=== PATIENT | female | born 1950 | race Caucasian/White ===

== ENCOUNTER 2018-01-05 13:13 | Emergency (ER) | payer OTHER, SELFPAY ==
[2018-01-05 13:23] VITALS: BP 184/100; PULSE 60; RESP 24; TEMP 36.9; O2SAT 97
[2018-01-05 14:27] LABS: Add Manual Diff / Slide Review NO; Basophils Percent Auto 0.4 % (0-2); Hematocrit 44.1 % (36-46); Hemoglobin 15.4 g/dL (12.0-16.0); Lymphocytes Percent Auto 9.2 % (25-40); Mean Corpuscular HGB Conc 34.9 % (30-36); Mean Corpuscular Hemoglobin 30.7 PG (26-34); Monocytes Percent Auto 4.7 % (3-14); Neutrophils Absolute Auto 9400 /uL (3000-5900); Neutrophils Percent Auto 85.7 % (50-75); Platelet Count 289 X10^3/uL (150-400); Red Blood Cell Count 5.01 X10^6/uL (4.0-5.2); Red Cell Distribution Width 13.3 % (11.6-14.8); White Blood Cell Count 10.9 X10^3/uL (4.5-11.0)
[2018-01-05 14:35] VITALS: BP 164/106; PULSE 72; RESP 17; O2SAT 99
[2018-01-05 14:37] LABS: Alanine Aminotransferase 17 IU/L (9-52); Albumin 4.7 g/dL (3.5-5.0); Albumin Globulin Ratio 1.2 (1.0-2.8); Alkaline Phosphatase 126 U/L (38-126); Aspartate Aminotransferase 28 IU/L (14-36); Bilirubin Total 1.3 mg/dL (0.2-1.3); Blood Urea Nitrogen 12 mg/dL (7-17); Calcium 9.8 mg/dL (8.4-10.2); Carbon Dioxide 23 mmol/L (22-32); Chloride 100 mmol/L (98-107); Estimated Glomerular Filt Rate 44.7 mL/min (>60); Globulin 3.9 g/dL (1.7-4.1); Glucose 121 mg/dL (80-110); HEMOLYSIS < 15 (0-50); Lipase 329 U/L (23-300); Potassium 3.8 mmol/L (3.4-5.1); Sodium 137 mmol/L (137-145); Total Protein 8.6 g/dL (6.3-8.2)
--- NOTE | 2018-01-05 14:45 | ED.ABDPAIN ---
HPI - Abdominal Pain General Chief Complaint: Abdominal Pain Stated Complaint: Abdominal pain Time Seen by Provider: 01/05/18 14:45 Source: patient Mode of arrival: EMS Limitations: no limitations History of Present Illness HPI narrative: The patient arrives by air from the [facility]. She developed lower abdominal pain yesterday. She vomited once yesterday. She now has lower abdominal pain radiating to the xiphoid process. She has not vomited today. She has decreased urine output, she has dysuria. Her last bowel movement was yesterday. She denies fever or chills. She has previously undergone ANNA-BSO, she reports changes to her ovaries, but nonspecifically reporting cancer. The hysterectomy was in 2001 at [facility]. She underwent a sigmoid colectomy with primary anastomosis in 2009 due to a colonic stricture that intraoperatively was deemed to be due to a combination of adhesions and diverticulosis. She required urgent treatment of a incarcerated hernia in 2012. At that time she was also found to have urinary retention, renal failure and ascites. The renal failure resolved once the urinary retention was resolved. She was again admitted [facility] in [place] in 2016 with urinary retention and renal failure that resolved with decompression. Ascites was again noted the ascites again resolved after the urinary retention was managed. A fluid sample was obtained on either of these hospitalizations. No abdominal pelvic pathology was noted on the surgery in 2012. She has a history of diverticulitis. She presents now with pain, with dysuria. She has vomited once. She had a normal bowel movement yesterday. She denies fever, chills or back pain. She has no chest pain or dyspnea. Related Data Home Medications Medication Instructions Recorded Confirmed Chromium 1 tab PO DAILY 01/05/18 01/05/18 Vitamin B-12 1 tab PO DAILY 01/05/18 01/05/18 acetaminophen [Tylenol] 1 tab PO PRN PRN 01/05/18 01/05/18 ascorbic acid (vitamin C) [Vitamin 500 mg PO DAILY 01/05/18 01/05/18 C] aspirin 81 mg PO DAILY 01/05/18 01/05/18 [id number] 1 tab PO BID 01/05/18 01/05/18 cyanocobalamin (vitamin B-12) 1 ml IM QMONTH 01/05/18 01/05/18 [Vitamin B-12] folic acid 1 mg PO DAILY 01/05/18 01/05/18 potassium gluconate 1 tab PO DAILY 01/05/18 01/05/18 Previous Rx's Medication Instructions Recorded tramadol 50 mg PO Q6H PRN #10 tab 01/05/18 tramadol 50 mg PO Q6H PRN #10 tab 01/05/18 Allergies Allergy/AdvReac Type Severity Reaction Status Date / Time cholecalciferol (vitamin D3) AdvReac Unknown Verified 01/05/18 17:16 [From Vitamin D3] iodine AdvReac Unknown Verified 01/05/18 17:16 PAIN MEDICATIONS Allergy Unknown Uncoded 01/05/18 17:16 Review of Systems Review of Systems All systems reviewed & are unremarkable except as noted in HPI and below Constitutional Denies chills, Denies fever(s), Denies lethargy and Denies weakness ENT Ears, Nose, Mouth, and Throat: Denies change in voice, Denies vertigo, Denies dizziness, Denies neck pain, Denies sore throat and Denies throat swelling Cardiovascular Denies chest pain, Denies irregular heart rhythm, Denies lightheadedness, Denies palpitations, Denies dyspnea, Denies dyspnea on exertion and Denies orthopnea Respiratory Denies cough, Denies dyspnea, Denies dyspnea on exertion and Denies wheezing Gastrointestinal Gastrointestinal: Reports as per HPI, Reports abdominal pain, Denies constipation, Denies dyspepsia, Denies heartburn, Denies diarrhea, Denies loose stools, Reports vomiting and Denies hematemesis Genitourinary Reports dysuria and Denies urinary urgency Musculoskeletal Denies back pain and Denies neck pain Integumentary/Breasts Denies erythema, Denies rash and Denies wounds Neurologic Denies confusion, Denies vertigo, Denies dizziness and Denies weakness Psychiatric Denies confusion Endocrine Denies palpitations Hematologic/Lymphatic Denies easy bruising Allergic/Immunologic Denies throat swelling and Denies wheezing PFSH Medical History Acute renal failure (Acute) Breast cancer, left (Acute) Diverticulitis (Acute) Hyperparathyroidism (Acute) Inguinal hernia, incarcerated (Acute) Renal insufficiency (Acute) Urinary retention (Acute) Surgical History History of appendectomy (Acute) History of left mastoidectomy (Acute) History of partial colectomy (Acute) Social History Smoking Status: Never smoker substance use type: does not use additional social history: She lives locally on [address] [address] [facility]. Exam Initial Vital Signs Initial Vital Signs: Vital Signs Temperature 98.4 F 01/05/18 13:23 Pulse Rate 60 01/05/18 13:23 Respiratory Rate 24 01/05/18 13:23 Blood Pressure 184/100 H 01/05/18 13:23 Pulse Oximetry 97 01/05/18 13:23 Const General: cooperative, healthy appearing and well developed Nutritional Appearance: well nourished Orientation: alert, awake, oriented x3 and not confused [facility] Head: normocephalic and atraumatic Mouth: oral mucosae normal and moist mucous membranes Throat: posterior oropharynx normal Eyes General: appearance normal, both eyes and all related structures Eyelids: eyelids normal Conjunctivae: conjunctivae normal Sclera: sclerae normal Pupils: PERRL EOM: EOM intact bilaterally Neck Neck: normal visual inspection, trachea midline, No lymphadenopathy and No JVD Chest Chest: normal inspection of the chest Resp Effort & Inspection: normal respiratory effort and able to speak in complete sentences Auscultation: clear to auscultation bilaterally, no rales, no rhonchi and no wheezes Cardio Rate: regular rate Rhythm: regular rhythm Heart Sounds: S1 normal, S2 normal, no click, no gallops, no murmurs and no rubs Pulses: normal peripheral pulses GI Inspection: no edema and no obesity Palpation: soft, guarding (LLQ) and tender (LLQ) Auscultation: normal bowel sounds Back/Spine/Pelvis Back: No CVA tenderness Skin General: no rashes or lesions noted Neuro General: alert, oriented x3 and no focal motor deficits Extrem General: full ROM, no pedal edema and no calf tenderness Course Course Narrative: I discussed the CT findings with Dr. Escobedo, surgery. Being that this is a noncontrast study, he said there was not a lot to be inferred from the concern for colitis. It would take a contrast study to really sort that out. She has no fever, she does not have symptoms and clinical findings indicating infection. There was concern about the recurrent ascites, and the unknown history of the etiology for the hysterectomy. His 1 suggestion was to obtain a sample of the ascites fluid. There is little ascites. Ultrasound guided aspiration versus culdocentesis are the best options. I discussed the situation with OB, Dr. Guallpa. She felt that culdocentesis was not a good approach, given the lady's multiple surgeries. She did recommend a CA 125 lab test. She agreed with ultrasound-guided paracentesis. However she pointed out that if this was a malignant ovarian/gynecological cancer, the lady would not have intermittent ascites, she would be showing signs of progressive illness. I will be referring the patient back to her doctor recommending the pathology from the hysterectomy in 2001 be reviewed, further studies could be based upon those results. Orders Ordered: ED Orders 01/05/18 14:22 Cancer Antigen 125 Stat Complete Blood Count AUTO DIFF Stat Comprehensive Metabolic Panel Stat Lipase Stat 01/05/18 14:57 CT abdomen pelvis wo con Stat 01/05/18 16:40 Urinalysis and Microscopic Stat Discontinued Medications Diazepam (Valium) 2.5 mg IV NOW ONE Stop: 01/05/18 14:58 Last Admin: 01/05/18 15:10 Dose: 2.5 mg Hydromorphone HCl (Dilaudid) 0.25 mg IV NOW ONE Stop: 01/05/18 17:29 Last Admin: 01/05/18 17:34 Dose: 0.25 mg Sodium Chloride (Normal Saline 0.9%) 1,000 mls @ 1,000 mls/hr IV BOLUS ONE Stop: 01/05/18 15:53 Last Infusion: 01/05/18 17:16 Dose: 0 mls/hr Admin: 01/05/18 15:10 Dose: 1,000 mls/hr Vital Signs - 8 hr 01/05/18 13:23 01/05/18 14:35 01/05/18 16:00 Temperature 98.4 F Pulse Rate 60 72 67 Respiratory Rate 24 17 20 Blood Pressure 184/100 H Blood Pressure [Right Arm] 164/106 H 187/108 H Pulse Oximetry 97 99 99 01/05/18 17:30 01/05/18 18:30 Temperature Pulse Rate 64 70 Respiratory Rate 16 12 Blood Pressure Blood Pressure [Right Arm] 140/92 H 153/90 H Pulse Oximetry 98 98 MDM - Abdominal Pain Lab Data Result diagrams: 01/05/18 14:22 01/05/18 14:22 Lab Results 01/05/18 01/05/18 01/05/18 Range/Units 14:22 14:22 16:40 WBC 10.9 (4.5-11.0) X10^3/uL RBC 5.01 (4.0-5.2) X10^6/uL Hgb 15.4 (12.0-16.0) g/dL Hct 44.1 (36-46) % MCV 88.0 (80-100) fL MCH 30.7 (26-34) PG MCHC 34.9 (30-36) % RDW 13.3 (11.6-14.8) % Plt Count 289 (150-400) X10^3/uL Neut % (Auto) 85.7 H (50-75) % Lymph % (Auto) 9.2 L (25-40) % Cross % (Auto) 4.7 (3-14) % Eos % (Auto) 0.0 L (2-4) % Baso % (Auto) 0.4 (0-2) % Neut # (Auto) 9400 H (7669-8846) /uL Sodium 137 (137-145) mmol/L Potassium 3.8 (3.4-5.1) mmol/L Chloride 100 (98-107) mmol/L Carbon Dioxide 23 (22-32) mmol/L BUN 12 (7-17) mg/dL Creatinine 1.20 H (0.52-1.04) mg/dL Estimated GFR 44.7 L (>60) mL/min BUN/Creatinine Ratio 10.0 (6-22) Glucose 121 H (80-110) mg/dL Calcium 9.8 (8.4-10.2) mg/dL Total Bilirubin 1.3 (0.2-1.3) mg/dL AST 28 (14-36) IU/L ALT 17 (9-52) IU/L Alkaline Phosphatase 126 (38-126) U/L Total Protein 8.6 H (6.3-8.2) g/dL Albumin 4.7 (3.5-5.0) g/dL Globulin 3.9 (1.7-4.1) g/dL Albumin/Globulin Ratio 1.2 (1.0-2.8) Lipase 329 H (23-300) U/L CA 125 Antigen 11 (0-35) U/mL Urine Color Yellow Urine Appearance Clear Urine pH 8.0 (4.5-8.0) Ur Specific Haines 1.010 (1.000-1.035) Urine Protein Negative (Negative) Urine Glucose (UA) Negative (Normal) g/dL Urine Ketones Trace H (NEGATIVE) Urine Occult Blood Trace-intact (Negative) Urine Nitrate Negative (Negative) Urine Bilirubin Negative (NEGATIVE) Urine Urobilinogen 0.2 (0.2) E.U./dL Ur Leukocyte Esterase Negative (NEGATIVE) Urine RBC 0-1/hpf (0-5/HPF) Urine WBC None seen (0-5/HPF) Urine Bacteria None seen (None) Ur Culture Indicated? Cult not indicated Micro UA Comment Not Reportable Imaging Data CT scan - abdomen: Radiologist's impression: INDICATIONS: Vomiting. LLQ pain. Renal insufficency. TECHNIQUE: Noncontrast 5 mm thick sections acquired from the diaphragms to the symphysis. 5 mm coronal and sagittal reformats were then performed. For radiation dose reduction, the following was used: automated exposure control, adjustment of mA and/or kV according to patient size. COMPARISON: [facility], CT, ABDOMEN/PELVIS WITH CONTRAST, 04/09/2010, 12:11. [facility], [place], RETROPERITONEAL SONOGRAM, 10/15/2012, 9:22. [facility], CT, ABDOMEN/PELVIS WITHOUT CONTRAS, 10/05/2012, 10:32. FINDINGS: Image quality: Excellent. ABDOMEN: Lung bases: Lung bases are clear. Heart size is normal. A small hiatal hernia is incidentally noted. Solid organs: Liver is normal in size. Gallbladder wall is not thickened. Pancreas is normal in contours. Spleen is normal in size. No adrenal nodules. Kidneys are normal in size, without hydronephrosis or nephrolithiasis. Peritoneum and bowel: There is mild to moderate wall thickening seen involving the transverse colon and the splenic flexure. No other definite areas of bowel thickening are seen. A mild to moderate ascites is seen. No free air. Colonic diverticulosis is seen, with scattered diverticuli throughout the colon. An apparent anastomotic staple and can be seen within the sigmoid colon. There is a moderate amount of stool seen within the colon. Nodes and vessels: No retroperitoneal or mesenteric adenopathy by size criteria. Aorta and inferior vena cava are normal in caliber. Miscellaneous: No ventral hernias. The previously described lower abdominal incisional hernia is no longer seen. PELVIS: Genitourinary: Bladder wall thickness is normal. Miscellaneous: No inguinal hernias or adenopathy. Bones: No suspicious bony lesions. No vertebral body compression fractures. Degenerative changes are seen throughout, which are most prominent involving the lower lumbar spine. IMPRESSION: Colonic wall thickening is seen. Please correlate with infectious inflammatory causes of colitis. Ischemic colitis is possible, yet considered to be less likely. Mild to moderate ascites is seen. Diverticula formation can be seen throughout colon. There is an apparent anastomotic staple line seen involving the sigmoid colon. Please correlate with known patient history. Incidental note is made of: Small hiatal hernia Dictated by: Didier Cruz M.D. on 01/05/2018 at 15:40 Approved by: Didier Cruz M.D. on 01/05/2018 at 15:46 ECG Data Attestation: I personally reviewed and interpreted this ECG as follows: MDM Narrative Medical decision making narrative: Once a East was placed the patient eventually released 1200 mL of urine. Her abdominal symptoms have improved significantly. Review my discussion about the ascites above. She will be discharged with a East in place, the urinary tension seems to be the primary source of her pain. She is going to be referred back to her doctor for further urologic evaluation, and hopefully to review the pathology from her hysterectomy. Discharge Plan Departure Patient Disposition: Home Clinical Impression: Acute urinary retention, Ascites Discharge Date/Time: 01/05/18 19:23 Interventions: ED Discharge Assessment Last Done: 01/05/18 19:22 Instructions: DI for Urinary Retention in Women Activity Restrictions/Additional Instructions: Tramadol 1/2-1 tablet every 6-8 hours as needed for pain. Follow up with her doctor. I would recommend a review of the hysterectomy pathology from years past, the reason would be to determine if there was any evidence of cancer. I also did a blood test to evaluate for cancer, termed a CA-125. This test will take several days to report back the results, ear doctor should be able to access this test value within about a week. Return here for recurrence of pain, fever or vomiting. Prescriptions: New tramadol 50 mg tablet 50 mg PO Q6H PRN (Reason: pain) Qty: 10 RF: 0 tramadol 50 mg tablet 50 mg PO Q6H PRN (Reason: pain) Qty: 10 RF: 0 No Action acetaminophen [Tylenol] 325 mg Tablet 1 tab PO PRN PRN (Reason: Pain (Scale Score 1-3)) RF: 0 [id number]-phisgsctr-[id number] 333-133-5 mg Tablet 1 tab PO BID RF: 0 aspirin 81 mg Tablet,Delayed Release (Dr/Ec) 81 mg PO DAILY RF: 0 ascorbic acid (vitamin C) [Vitamin C] 500 mg Tablet 500 mg PO DAILY RF: 0 cyanocobalamin (vitamin B-12) [Vitamin B-12] 1,000 mcg/mL Solution 1 ml IM QMONTH RF: 0 folic acid 1 mg Tablet 1 mg PO DAILY RF: 0 potassium gluconate 595 mg (99 mg) Tablet Extended Release 1 tab PO DAILY RF: 0 Chromium 1 tab PO DAILY RF: 0 Vitamin B-12 1 tab PO DAILY RF: 0
--- NOTE | 2018-01-05 14:57 | DI.CT.S_ITS ---
PROCEDURE: CT ABDOMEN PELVIS WO CON INDICATIONS: Vomiting. LLQ pain. Renal insufficency. TECHNIQUE: Noncontrast 5 mm thick sections acquired from the diaphragms to the symphysis. 5 mm coronal and sagittal reformats were then performed. For radiation dose reduction, the following was used: automated exposure control, adjustment of mA and/or kV according to patient size. COMPARISON: [facility], CT, ABDOMEN/PELVIS WITH CONTRAST, 04/09/2010, 12:11. [facility], [place], RETROPERITONEAL SONOGRAM, 10/15/2012, 9:22. [facility], CT, ABDOMEN/PELVIS WITHOUT CONTRAS, 10/05/2012, 10:32. FINDINGS: Image quality: Excellent. ABDOMEN: Lung bases: Lung bases are clear. Heart size is normal. A small hiatal hernia is incidentally noted. Solid organs: Liver is normal in size. Gallbladder wall is not thickened. Pancreas is normal in contours. Spleen is normal in size. No adrenal nodules. Kidneys are normal in size, without hydronephrosis or nephrolithiasis. Peritoneum and bowel: There is mild to moderate wall thickening seen involving the transverse colon and the splenic flexure. No other definite areas of bowel thickening are seen. A mild to moderate ascites is seen. No free air. Colonic diverticulosis is seen, with scattered diverticuli throughout the colon. An apparent anastomotic staple and can be seen within the sigmoid colon. There is a moderate amount of stool seen within the colon. Nodes and vessels: No retroperitoneal or mesenteric adenopathy by size criteria. Aorta and inferior vena cava are normal in caliber. Miscellaneous: No ventral hernias. The previously described lower abdominal incisional hernia is no longer seen. PELVIS: Genitourinary: Bladder wall thickness is normal. Miscellaneous: No inguinal hernias or adenopathy. Bones: No suspicious bony lesions. No vertebral body compression fractures. Degenerative changes are seen throughout, which are most prominent involving the lower lumbar spine. IMPRESSION: Colonic wall thickening is seen. Please correlate with infectious inflammatory causes of colitis. Ischemic colitis is possible, yet considered to be less likely. Mild to moderate ascites is seen. Diverticula formation can be seen throughout colon. There is an apparent anastomotic staple line seen involving the sigmoid colon. Please correlate with known patient history. Incidental note is made of: Small hiatal hernia Dictated by: Didier Cruz M.D. on 01/05/2018 at 15:40 Approved by: Didier Cruz M.D. on 01/05/2018 at 15:46
[2018-01-05] MEDS: diazePAM 10 MG/2 ML SYRINGE 2.5 MG IV (15:10)
[2018-01-05] MEDS: SODIUM CHLORIDE 0.9% 1,000 ML 1000 ML IV (15:10)
[2018-01-05 16:00] VITALS: BP 187/108; PULSE 67; RESP 20; O2SAT 99
[2018-01-05 16:52] LABS: Bacteria Urine None Seen; WBC Urine None Seen (0-5/HPF)
[2018-01-05 16:53] LABS: Appearance Urine UA CLEAR; Bilirubin Urine UA NEGATIVE (NEGATIVE); Color Urine UA YELLOW; Glucose Urine UA NEGATIVE (Normal); Ketones Urine UA TRACE (NEGATIVE); Leukocyte Esterase Urine UA NEGATIVE (NEGATIVE); Nitrite Urine UA Negative (Negative); Occult Blood Urine UA TRACE-INTACT (Negative); Protein Urine UA NEGATIVE (Negative); Urobilinogen Urine UA 0.2 E.U./dL (0.2)
[2018-01-05 17:02] LABS: Culture Indicated Urine Cult Not Indicated; RBC Urine 0-1/HPF (0-5/HPF)
[2018-01-05 17:30] VITALS: BP 140/92; PULSE 64; RESP 16; O2SAT 98
[2018-01-05] MEDS: HYDROMORPHONE 1 MG INJ 0.25 MG IV (17:34)
[2018-01-05 18:30] VITALS: BP 153/90; PULSE 70; RESP 12; O2SAT 98
[2018-01-05 19:30] LABS: Cancer Antigen 125 11 U/mL (0-35)
--- NOTE | 2018-01-05 19:38 | PC.NURSE ---
Before leaving ED, pt went to restroom and then came out stating her catheter was leaking and she wished for it to be removed. Assessed the catheter and did not find a source of leak or any issues with the catheter tubing. She stated that it made her feel like she had to urinate. Discussed with provider who recommends she keep the catheter in as planned. Patient elects to have the catheter removed. Removed catheter per her wishes.
== END 2018-01-05 19:23 | disposition home or self-care (01) ==
PROVIDERS: Emergency Provider Emergency Medicine; Family Provider Family Medicine; PCP Family Medicine
DX: R33.8 Other retention of urine (principal); R18.8 Other ascites
CPT/HCPCS: 36415; 51701; 74176; 80053; 81001; 83690; 85025; 86304; 93005; 96361; 96374; 96375; 99283; 99285; J1170; J3360

== ENCOUNTER → 2018-10-15 10:19 | Outpatient (CLI) | payer OTHER, SELFPAY | PROVIDERS: PCP Family Medicine; Visit Provider Ophthalmology | DX: H16.201 Unspecified keratoconjunctivitis, right eye (principal) | CPT/HCPCS: 87070; 87205 ==

== ENCOUNTER 2018-10-30 09:05 | Emergency (ER) | payer OTHER, SELFPAY ==
[2018-10-30 09:05] VITALS: BP 152/89; PULSE 68; RESP 18; TEMP 36.5; O2SAT 100; BMI 21.9
--- NOTE | 2018-10-30 09:38 | ED.UPPEXIN ---
HPI - Extremity Injury (Upper) General Chief Complaint: Extremity Injury, Upper Stated Complaint: possible r thumb infection Time Seen by Provider: 10/30/18 09:25 Source: patient Mode of arrival: ambulatory Limitations: no limitations History of Present Illness HPI narrative: This is a 68-year-old female comes to the emergency department with complaint of [place] slivers in her thumb about 2 weeks ago. Patient states that she went to the doctor, they tried to get the mouth they were unable to. On Thursday the PA made a cut and there is a large amount of blood but they were not able to remove the slivers. Patient states it has been having some increasing swelling although little bit better than yesterday. It has been tender. She can feel where she feels like the slivers are specifically. She has not had any fevers or chills. No cough cold or congestion. No nausea or vomiting. No numbness or tingling in her thumb. She states that it is feeling a little bit more uncomfortable today. [place] visualize any foreign body. Patient states she has a history of parathyroid, she has not been on any antibiotics. Related Data Home Medications Medication Instructions Recorded Confirmed Chromium 1 tab PO DAILY 01/05/18 01/05/18 Vitamin B-12 1 tab PO DAILY 01/05/18 01/05/18 acetaminophen [Tylenol] 1 tab PO PRN PRN 01/05/18 01/05/18 ascorbic acid (vitamin C) [Vitamin 500 mg PO DAILY 01/05/18 01/05/18 C] aspirin 81 mg PO DAILY 01/05/18 01/05/18 hqehxwy-pqjfqhtve-glip 1 tab PO BID 01/05/18 01/05/18 cyanocobalamin (vitamin B-12) 1 ml IM QMONTH 01/05/18 01/05/18 [Vitamin B-12] folic acid 1 mg PO DAILY 01/05/18 01/05/18 potassium gluconate 1 tab PO DAILY 01/05/18 01/05/18 Previous Rx's Medication Instructions Recorded tramadol 50 mg PO Q6H PRN #10 tab 01/05/18 tramadol 50 mg PO Q6H PRN #10 tab 01/05/18 doxycycline hyclate 100 mg PO BID #20 cap 10/30/18 Allergies Allergy/AdvReac Type Severity Reaction Status Date / Time cholecalciferol (vitamin D3) AdvReac Unknown Verified 10/30/18 09:15 [From Vitamin D3] iodine AdvReac Unknown Verified 10/30/18 09:15 PAIN MEDICATIONS Allergy Unknown Uncoded 10/30/18 09:15 Review of Systems Review of Systems ROS Unobtainable: All systems reviewed & are unremarkable except as noted in HPI and below Constitutional Denies chills and Denies fever(s) Cardiovascular Denies chest pain and Denies dyspnea Respiratory Denies dyspnea Gastrointestinal Gastrointestinal: Denies abdominal pain, Denies change in bowel habits, Denies diarrhea, Denies nausea and Denies vomiting Musculoskeletal Reports as per HPI, Denies limited range of motion, Denies numbness, Denies tingling and Reports other (thumb swollen, painful.) Integumentary/Breasts Denies erythema and Reports unusual bruising Neurologic Denies numbness and Denies tingling PFSH Medical History Acute renal failure (Acute) Breast cancer, left (Acute) Diverticulitis (Acute) Hyperparathyroidism (Acute) Inguinal hernia, incarcerated (Acute) Renal insufficiency (Acute) Urinary retention (Acute) Surgical History History of appendectomy (Acute) History of left mastoidectomy (Acute) History of partial colectomy (Acute) Social History (Updated 01/05/18 @ 18:25 by Vipul Ryan MD) Smoking Status: Never smoker substance use type: does not use additional social history: She lives locally on [facility]. Social History Smoking Status: Never smoker substance use type: does not use additional social history: She lives locally on [facility]. Exam Narrative Exam Narrative: GENERAL: Alert and oriented x three, thin female in no acute distress. HEENT: Head normocephalic, atraumatic, EOMI, pupils reactive, face symmetric, moist mucous membranes NECK: Supple, full range of motion CARDIOVASCULAR: Regular rate and rhythm without murmurs, rubs or gallops. RESPIRATORY: Breath sounds equal bilaterally, no wheezes rales or rhonchi. ABDOMEN: Soft, nontender. Normoactive bowel sounds all 4 quadrants. No guarding or rebound, rigidity, no mass EXTREMITIES: Normal range of motion, no clubbing. Patient has some swelling particularly over the DIP joint, patient has softness but no discrete fluctuance. There is no warmth, there is no erythema but area does look a little bruised. Patient has full range of motion. She has normal sensation with cap refill less than 2 seconds. Neurovascularly intact NEUROLOGICAL: Cranial nerves II through XII grossly intact. Moving all extremities SKIN: Warm, dry, no petechiae, no rashes. Initial Vital Signs Initial Vital Signs: Vital Signs Temperature 97.7 F 10/30/18 09:05 Pulse Rate 68 10/30/18 09:05 Respiratory Rate 18 10/30/18 09:05 Blood Pressure 152/89 H 10/30/18 09:05 Pulse Oximetry 100 10/30/18 09:05 Procedures Abscess I/D Site: hand (thumb) Side (if applicable): right Local Anesthetic: lidocaine 1% Amount of anesthesia used (mL): 1 Technique: needle aspiration and incised with #11 blade (blood out, no purulent fluid) Amount of fluid expressed (mL): 1 Irrigation: No Packing used?: none Complications: bleeding (oozing) Course Orders Ordered: ED Orders 10/30/18 10:18 XR finger RT min 2V Stat Vital Signs - 8 hr 10/30/18 11:22 Pulse Rate 67 Respiratory Rate 12 Blood Pressure [Left Arm] 149/95 H Pulse Oximetry 100 MDM - Extremity Injury (Upper) Imaging Data Bedside ultrasound: Attestation: I personally reviewed and interpreted this imaging study as follows: My impression: Bedside ultrasound shows small fluid collection underneath the superficial skin. That is about 0.5 cm in size. There is no foreign body noted. X-ray thumb: Radiologist's impression: [address] [address] XRay Report Signed Patient: Eliz Fisher [facility]#: [id number] : 1950Acct:[id number] Age/Sex: 68 / FDate of Service: 10/30/18 Loc: ED Accession Number: [id number] Procedure: XR finger RT min 2V Ordering Provider: Manisha Live D.O. PROCEDURE: XR FINGER RT MIN 2V INDICATIONS: thumb, concern for FB. wood vs. glass TECHNIQUE: AP hand, 2 views of the 1st finger(s) acquired. COMPARISON: None. FINDINGS: Bones: No fractures or dislocations. No suspicious bony lesions. Degenerative changes are seen throughout, which are most prominent involving the 1st carpometacarpal joint amount and also involving the interphalangeal joint of the thumb. Soft tissues: No radiopaque foreign bodies are seen. Soft tissue gas and soft tissue swelling can be seen involving the thumb. IMPRESSION: No acute bony injury is seen. No radiopaque foreign bodies are seen. Soft tissue swelling is seen. Bony degenerative changes. If there is strong suspicion for developing osteomyelitis, please consider a dedicated MRI with contrast for further evaluation (assuming that there is no contraindication to MRI). Dictated by: Didier Cruz M.D. on 10/30/2018 at 9:51 Approved by: Didier Cruz M.D. on 10/30/2018 at 9:52 MDM Narrative Medical decision making narrative: Patient has complaint of seizure slivers in her thumb is for 2 weeks. She has had an incision drainage or at least aspiration x2 that had hematoma last time. I suspect on ultrasound that I am seeing hematoma, ultrasound does not show any foreign body that is easily discernible and x-ray does not show any foreign body. After 2 weeks Um with what patient describes as very tiny slivers the likelihood of us finding removing the low. I did discuss that I suspect this is more hematoma but offered some antibiotic coverage. We did repeat an and D which patient has some hematoma and placed a compression dressing but will likely refill. Discharge Plan Departure Patient Disposition: Home Clinical Impression: Abscess of right thumb Discharge Date/Time: 10/30/18 11:29 Interventions: ED Discharge Assessment Last Done: 10/30/18 11:28 Instructions: DI for Skin Abscess Activity Restrictions/Additional Instructions: Follow-up with a physician in next 3-5 days for recheck. Take antibiotics until completely gone. Your thumb appears to have a hematoma or blood collection, there is no purulent fluid or pus. I do recommend he take antibiotics until gone. Wound Care: Keep wound(s) clean and dry. Wash daily with soap and water only. Do not use over the counter products (alcohol or peroxide)on the wounds unless instructed by a physician. If wound condition worsens (increased/expanding redness, developing fluid blisters, or worsening pain), either contact your doctor for an urgent re-assessment , or return to the Emergency Department. Return to the Emergency Department for any new or worsening symptoms. Return if fever greater than 100.4 Fahrenheit, increased swelling, increasing pain or worsening symptoms such as increased discharge or spreading redness. Use warm compresses 3 times daily for 20 minutes to the affected area. Prescriptions: New doxycycline hyclate 100 mg capsule 100 mg PO BID Qty: 20 RF: 0 No Action acetaminophen [Tylenol] 325 mg Tablet 1 tab PO PRN PRN (Reason: Pain (Scale Score 1-3)) RF: 0 fywgbxf-gkgtphien-qlwa 333-133-5 mg Tablet 1 tab PO BID RF: 0 aspirin 81 mg Tablet,Delayed Release (Dr/Ec) 81 mg PO DAILY RF: 0 ascorbic acid (vitamin C) [Vitamin C] 500 mg Tablet 500 mg PO DAILY RF: 0 cyanocobalamin (vitamin B-12) [Vitamin B-12] 1,000 mcg/mL Solution 1 ml IM QMONTH RF: 0 folic acid 1 mg Tablet 1 mg PO DAILY RF: 0 potassium gluconate 595 mg (99 mg) Tablet Extended Release 1 tab PO DAILY RF: 0 Chromium 1 tab PO DAILY RF: 0 Vitamin B-12 1 tab PO DAILY RF: 0 tramadol 50 mg tablet 50 mg PO Q6H PRN (Reason: pain) Qty: 10 RF: 0 tramadol 50 mg tablet 50 mg PO Q6H PRN (Reason: pain) Qty: 10 RF: 0 Referrals: Royce Killian MD [Primary Care Provider] -
--- NOTE | 2018-10-30 10:18 | DI.RAD.S_ITS ---
PROCEDURE: XR FINGER RT MIN 2V INDICATIONS: thumb, concern for FB. wood vs. glass TECHNIQUE: AP hand, 2 views of the 1st finger(s) acquired. COMPARISON: None. FINDINGS: Bones: No fractures or dislocations. No suspicious bony lesions. Degenerative changes are seen throughout, which are most prominent involving the 1st carpometacarpal joint amount and also involving the interphalangeal joint of the thumb. Soft tissues: No radiopaque foreign bodies are seen. Soft tissue gas and soft tissue swelling can be seen involving the thumb. IMPRESSION: No acute bony injury is seen. No radiopaque foreign bodies are seen. Soft tissue swelling is seen. Bony degenerative changes. If there is strong suspicion for developing osteomyelitis, please consider a dedicated MRI with contrast for further evaluation (assuming that there is no contraindication to MRI). Dictated by: Didier Cruz M.D. on 10/30/2018 at 9:51 Approved by: Didier Cruz M.D. on 10/30/2018 at 9:52
[2018-10-30 11:22] VITALS: BP 149/95; PULSE 67; RESP 12; O2SAT 100
--- NOTE | 2018-10-30 11:28 | PC.NURSE ---
bacitracin ointment applied with coban for preassure drsg. +distal cms intact.
== END 2018-10-30 11:29 | disposition home or self-care (01) ==
PROVIDERS: Emergency Provider Emergency Medicine; PCP Family Medicine
DX: L02.511 Cutaneous abscess of right hand (principal)
CPT/HCPCS: 10060; 73140; 99282; 99283

== ENCOUNTER 2018-11-17 20:05 | Emergency (ER) | payer OTHER, SELFPAY ==
[2018-11-17] VITALS (7 sets, daily range): BP systolic 130–161; BP diastolic 80–98; PULSE 80–89; RESP 15–20; TEMP 36.6; O2SAT 93–99; BMI 16.0
[2018-11-17] MEDS: ONDANSETRON 4 MG/2 ML INJ IV (20:21)
--- NOTE | 2018-11-17 20:31 | ED.ABDPAIN ---
HPI - Abdominal Pain General Chief Complaint: Abdominal Pain Stated Complaint: Hernia pain after lifting Time Seen by Provider: 11/17/18 20:10 Source: patient Mode of arrival: ambulatory Limitations: no limitations History of Present Illness HPI narrative: The patient lives in the [facility]. She has a prior history of abdominal hernia repair with mesh and bowel resection due to incarcerated hernia. Today she had chopped a tree down, she was removing the tree from the [place] by herself. She felt a tearing pain in the lower abdomen. Ambulance was summoned due to extreme pain. [facility] was contacted for transport. She did have vomiting. She has received some relief due to Ketamine and Ativan given by the [facility] nurses. These medications were chosen after the patient declined all narcotics due to prior reactions. She has no chest pain, palpitations or dyspnea. Tachycardia was noted by nurses from [facility] and here. The patient explained she has intermittent AFib. She is having no current cardiac symptoms. Discomfort is regulated to lower abdomen, the site of prior hernia repair. Prior to today she had no emesis, abdominal pain, or bowel changes. She has no urinary complaints. She was drinking fluids at home, and had normal urine output for transport here. She developed a lower abdominal pain, seemingly after urinating. In addition to the prior abdominal surgery, she has undergone bilateral mastectomy due to cancer. She has intermittent AFib. She has a history of renal insufficiency. Related Data Home Medications Medication Instructions Recorded Confirmed Chromium 1 tab PO DAILY 01/05/18 01/05/18 Vitamin B-12 1 tab PO DAILY 01/05/18 01/05/18 acetaminophen [Tylenol] 1 tab PO PRN PRN 01/05/18 01/05/18 ascorbic acid (vitamin C) [Vitamin 500 mg PO DAILY 01/05/18 01/05/18 C] aspirin 81 mg PO DAILY 01/05/18 01/05/18 [id number] 1 tab PO BID 01/05/18 01/05/18 cyanocobalamin (vitamin B-12) 1 ml IM QMONTH 01/05/18 01/05/18 [Vitamin B-12] folic acid 1 mg PO DAILY 01/05/18 01/05/18 potassium gluconate 1 tab PO DAILY 01/05/18 01/05/18 Previous Rx's Medication Instructions Recorded tramadol 50 mg PO Q6H PRN #10 tab 01/05/18 tramadol 50 mg PO Q6H PRN #10 tab 01/05/18 doxycycline hyclate 100 mg PO BID #20 cap 10/30/18 Allergies Allergy/AdvReac Type Severity Reaction Status Date / Time cholecalciferol (vitamin D3) AdvReac Unknown Verified 11/17/18 20:06 [From Vitamin D3] iodine AdvReac Unknown Verified 11/17/18 20:06 PAIN MEDICATIONS Allergy Unknown Uncoded 10/30/18 09:15 Review of Systems Constitutional Denies chills, Denies fever(s), Denies lethargy and Reports weakness ENT Ears, Nose, Mouth, and Throat: Denies dizziness Comments: No complaints Cardiovascular Denies chest pain, Denies irregular heart rhythm, Denies lightheadedness, Denies palpitations and Denies dyspnea Respiratory Denies cough, Denies dyspnea and Denies wheezing Gastrointestinal Gastrointestinal: Reports abdominal pain, Denies change in bowel habits, Denies diarrhea, Reports nausea and Reports vomiting Genitourinary Comments: No urinary complaints Musculoskeletal Denies abnormal gait, Denies back pain and Denies muscle weakness Integumentary/Breasts Denies erythema, Denies rash and Denies wounds Neurologic Denies abnormal gait, Denies confusion, Denies dizziness and Reports weakness Psychiatric Denies anxiety and Denies confusion Endocrine Denies palpitations Hematologic/Lymphatic Denies easy bruising Allergic/Immunologic Denies wheezing [facility] Medical History Acute renal failure (Acute) Breast cancer, left (Acute) Diverticulitis (Acute) Hyperparathyroidism (Acute) Inguinal hernia, incarcerated (Acute) Renal insufficiency (Acute) Urinary retention (Acute) Surgical History History of appendectomy (Acute) History of left mastoidectomy (Acute) History of partial colectomy (Acute) Social History Smoking Status: Never smoker substance use type: does not use additional social history: She lives locally on [facility]. Social History Smoking Status: Never smoker substance use type: does not use additional social history: She lives locally on [facility]. Exam Initial Vital Signs Initial Vital Signs: Vital Signs Temperature 97.9 F 11/17/18 20:15 Pulse Rate 89 11/17/18 20:15 Respiratory Rate 16 11/17/18 20:15 Blood Pressure 159/91 H 11/17/18 20:15 Pulse Oximetry 93 11/17/18 20:15 Const General: cooperative, well developed and in distress (Due to abdominal pain) Nutritional Appearance: well nourished Orientation: alert, awake, oriented x3 and not confused [facility] Head: normocephalic and atraumatic Mouth: oral mucosae normal Teeth and gingiva: dentition normal Throat: tonsils normal and uvula midline Eyes General: appearance normal, both eyes and all related structures Conjunctivae: conjunctivae normal Sclera: sclerae normal Pupils: PERRL EOM: EOM intact bilaterally Neck Neck: full ROM and No tender Chest Chest: normal inspection of the chest and abnormal inspection of the chest (Status post bilateral mastectomy) Resp Effort & Inspection: normal respiratory effort, able to speak in complete sentences and no respiratory distress Auscultation: clear to auscultation bilaterally, no rales and no rhonchi Cardio Rate: regular rate Rhythm: regular rhythm Heart Sounds: no click, no gallops, no murmurs and no rubs Pulses: normal peripheral pulses Other: Primarily in normal sinus rhythm, with intermittent runs of tachycardia to 160s GI Inspection: non-distended Palpation: no hepatosplenomegaly, No pulsatile mass and tender (Lower abdominal tenderness with guarding. No masses. No hernias.) Auscultation: normal bowel sounds Back/Spine/Pelvis Back: No CVA tenderness Skin General: no rashes or lesions noted and No petechiae Neuro General: alert, oriented x3, gait normal and no focal motor deficits Speech: speech normal Extrem General: full ROM, no pedal edema and no calf tenderness Course Course Narrative: 06:40AM. -. After arrival, the patient was complaining of extreme abdominal pain. She was oriented, but very sleepy. She tells me she was previously incoherent after narcotics for an extended period of time. She did request diazepam for pain. Not at the time of the initial evaluation, but later through the shift she reveals she took diazepam and Tylenol at home prior to the arrival of [facility]. I discussed her care and medications including Ketamine and Ativan with the [facility] nurses. It is my impression that they are unaware that she had already taken the diazepam. She has been disoriented to an extended period of time through the night, even once her lower abdominal pain seemed to subside and she was becoming more coherent. The abdominal CT tonight revealed wall thickening of the jejunum as well as mild to moderate ascites. Abd/Pelvis CT December 2017 revealed nonspecific inflammation of the transverse colon as well as ascites at that time. She is now calmer, and clearly more coherent. She was obviously impacted by medications self administered + the medication she received with transportation. She denies explains abdominal pain that developed earlier in the day. She had previously noted abdominal discomfort in recent days, with pain in the left mid abdomen. She developed pain with urination only prior to coming here. Reexamination of the abdomen now shows a tender lower abdomen, but no evidence of guarding, rebound, mass or for hernia formation. It is noted despite ongoing IV hydration, a total of 1500 mL, she could not urinate and ultrasound scanning by the ER nurse is revealed a relatively empty bladder. The patient initially revealed that she has occasionally resulted to self cath due to urinary retention issues, but repeated she felt like she urinated normally prior to coming here. The CT suggested a bladder, potentially compressed. A East was placed, and has thus far released 500 mL of clear yellow urine. Surgical consultation with Dr. Gallegos was sought. The etiology of the ascites is unclear. Association with urinary retention is unclear. Ultrasound-guided paracentesis was discussed and will be pursued. With the patient now being more coherent, this appears to be a medical situation rather than associated with trauma. 08:07AM. 11/18/2018. I reviewed the abdominal CT with surgery, Dr. Gallegos. There is no clear relationship with her urinary retention and her prior surgical history. She has no immediate surgical concerns. I discussed her case with Dr. Perez, urology. He has agreed to see her as an outpatient. Prior to discharge she has greater than 2200 mL of urine out through the East, she will be discharged with the East in place. Orders Ordered: ED Orders 11/18/18 02:34 EKG-12 Lead Stat 11/18/18 06:15 Urinalysis and Microscopic Stat Urine Culture Stat Urine Drug Screen, Rapid Stat Sodium Chloride (Normal Saline 0.9%) 1,000 mls @ 150 mls/hr IV CONT ELAINE Last Infusion: 11/18/18 03:40 Dose: 150 mls/hr Admin: 11/17/18 20:55 Dose: 150 mls/hr Sodium Chloride (Normal Saline 0.9%) 1,000 mls @ 200 mls/hr IV BOLUS ONE Stop: 11/18/18 12:27 Last Infusion: 11/18/18 06:00 Dose: 200 mls/hr Admin: 11/18/18 04:00 Dose: 200 mls/hr Discontinued Medications Acetaminophen (Tylenol) 650 mg PO NOW ONE Stop: 11/17/18 23:41 Last Admin: 11/17/18 23:45 Dose: 650 mg Ketorolac Tromethamine (Toradol) 15 mg IV NOW ONE Stop: 11/18/18 02:00 Last Admin: 11/18/18 02:14 Dose: Not Given Ketorolac Tromethamine (Toradol) 15 mg IV NOW ONE Stop: 11/18/18 02:14 Last Admin: 11/18/18 02:27 Dose: 15 mg Ondansetron HCl (Zofran) 4 mg IV NOW ONE Stop: 11/17/18 20:18 Last Admin: 11/17/18 20:21 Dose: 4 mg Potassium Chloride (Potassium Chloride) 20 meq PO NOW ONE Stop: 11/17/18 23:41 Last Admin: 11/17/18 23:40 Dose: 20 meq Vital Signs - 8 hr 11/18/18 01:00 11/18/18 02:00 11/18/18 02:30 Pulse Rate 82 72 72 Respiratory Rate 16 16 18 Blood Pressure [Left Arm] 142/86 H 143/85 H 156/94 H Pulse Oximetry 97 96 95 11/18/18 05:00 11/18/18 05:30 11/18/18 06:33 Pulse Rate 76 72 78 Respiratory Rate 17 18 19 Blood Pressure [Left Arm] 126/79 119/78 138/89 Pulse Oximetry 96 97 96 11/18/18 07:00 11/18/18 07:30 Pulse Rate 74 78 Respiratory Rate 18 17 Blood Pressure [Left Arm] 123/79 124/77 Pulse Oximetry 98 96 MDM - Abdominal Pain Lab Data Result diagrams: 11/17/18 20:47 11/17/18 20:47 Lab Results 11/17/18 11/17/18 11/18/18 Range/Units 20:47 20:47 06:15 WBC 8.4 (4.5-11.0) X10^3/uL RBC 4.12 (4.0-5.2) X10^6/uL Hgb 12.4 (12.0-16.0) g/dL Hct 37.1 (36-46) % MCV 90.0 (80-100) fL MCH 30.1 (26-34) PG MCHC 33.5 (30-36) % RDW 14.0 (11.6-14.8) % Plt Count 232 (150-400) X10^3/uL Neut % (Auto) 81.3 H (50-75) % Lymph % (Auto) 11.4 L (25-40) % [place] % (Auto) 6.6 (3-14) % Eos % (Auto) 0.3 L (2-4) % Baso % (Auto) 0.4 (0-2) % Neut # (Auto) 6800 (2176-7026) /uL Lymph # (Auto) 1000 L (0671-4561) /uL [place] # (Auto) 600 (0-900) /uL Eos # (Auto) 0 (0-450) /uL Baso # (Auto) 0 (0-100) /uL Sodium 138 (137-145) mmol/L Potassium 3.3 L (3.4-5.1) mmol/L Chloride 103 (98-107) mmol/L Carbon Dioxide 24 (22-32) mmol/L BUN 15 (7-17) mg/dL Creatinine 1.00 (0.52-1.04) mg/dL Estimated GFR 55.0 L (>60) mL/min BUN/Creatinine Ratio 15.0 (6-22) Glucose 181 H (80-110) mg/dL Calcium 9.6 (8.4-10.2) mg/dL Total Bilirubin 0.4 (0.2-1.3) mg/dL AST 35 (14-36) IU/L ALT 14 (9-52) IU/L Alkaline Phosphatase 148 H (38-126) U/L Total Protein 7.5 (6.3-8.2) g/dL Albumin 4.0 (3.5-5.0) g/dL Globulin 3.5 (1.7-4.1) g/dL Albumin/Globulin Ratio 1.1 (1.0-2.8) Lipase 176 (23-300) U/L Urine Color Urine Appearance Urine pH (4.5-8.0) Ur Specific [place] (1.000-1.035) Urine Protein (Negative) Urine Glucose (UA) (Negative) g/dL Urine Ketones (NEGATIVE) Urine Occult Blood (Negative) Urine Nitrate (Negative) Urine Bilirubin (NEGATIVE) Urine Urobilinogen (0.2) E.U./dL Ur Leukocyte Esterase (NEGATIVE) Urine RBC (0-5/HPF) Urine WBC (0-5/HPF) Ur Squamous Epith Cells (0-5/HPF) Urine Bacteria (None) Ur Culture Indicated? Urine Opiates Screen Negative (Negative) Ur Oxycodone Screen Negative (Negative) Urine Methadone Screen Negative (Negative) Ur Barbiturates Screen Negative (Negative) U Tricyclic Antidepress Negative (Negative) Ur Phencyclidine Scrn Negative (Negative) Ur Amphetamines Screen Negative (Negative) U Methamphetamines Scrn Negative (Negative) Ur MDMA Scrn (Ecstasy) Negative (Negative) U Benzodiazepines Scrn Positive H (Negative) Urine Cocaine Screen Negative (Negative) U Marijuana (THC) Screen Negative (Negative) 11/18/18 Range/Units 06:15 WBC (4.5-11.0) X10^3/uL RBC (4.0-5.2) X10^6/uL Hgb (12.0-16.0) g/dL Hct (36-46) % MCV (80-100) fL MCH (26-34) PG MCHC (30-36) % RDW (11.6-14.8) % Plt Count (150-400) X10^3/uL Neut % (Auto) (50-75) % Lymph % (Auto) (25-40) % [place] % (Auto) (3-14) % Eos % (Auto) (2-4) % Baso % (Auto) (0-2) % Neut # (Auto) (6266-8166) /uL Lymph # (Auto) (4716-4579) /uL [place] # (Auto) (0-900) /uL Eos # (Auto) (0-450) /uL Baso # (Auto) (0-100) /uL Sodium (137-145) mmol/L Potassium (3.4-5.1) mmol/L Chloride (98-107) mmol/L Carbon Dioxide (22-32) mmol/L BUN (7-17) mg/dL Creatinine (0.52-1.04) mg/dL Estimated GFR (>60) mL/min BUN/Creatinine Ratio (6-22) Glucose (80-110) mg/dL Calcium (8.4-10.2) mg/dL Total Bilirubin (0.2-1.3) mg/dL AST (14-36) IU/L ALT (9-52) IU/L Alkaline Phosphatase (38-126) U/L Total Protein (6.3-8.2) g/dL Albumin (3.5-5.0) g/dL Globulin (1.7-4.1) g/dL Albumin/Globulin Ratio (1.0-2.8) Lipase (23-300) U/L Urine Color Straw Urine Appearance Clear Urine pH 7.0 (4.5-8.0) Ur Specific [place] 1.015 (1.000-1.035) Urine Protein 2+ H (Negative) Urine Glucose (UA) Negative (Negative) g/dL Urine Ketones Negative (NEGATIVE) Urine Occult Blood 1+ H (Negative) Urine Nitrate Negative (Negative) Urine Bilirubin Negative (NEGATIVE) Urine Urobilinogen 0.2 (0.2) E.U./dL Ur Leukocyte Esterase 2+ H (NEGATIVE) Urine RBC 0-1/hpf (0-5/HPF) Urine WBC 0-1/hpf (0-5/HPF) Ur Squamous Epith Cells 0-1 /hpf (0-5/HPF) Urine Bacteria Occasional (0-1) (None) Ur Culture Indicated? Specimen cultured Urine Opiates Screen (Negative) Ur Oxycodone Screen (Negative) Urine Methadone Screen (Negative) Ur Barbiturates Screen (Negative) U Tricyclic Antidepress (Negative) Ur Phencyclidine Scrn (Negative) Ur Amphetamines Screen (Negative) U Methamphetamines Scrn (Negative) Ur MDMA Scrn (Ecstasy) (Negative) U Benzodiazepines Scrn (Negative) Urine Cocaine Screen (Negative) U Marijuana (THC) Screen (Negative) Imaging Data CT scan - abdomen: Radiologist's impression: Moderate ascites. Thickening of the proximal jejunum wall. ECG Data Attestation: I personally reviewed and interpreted this ECG as follows: (Normal sinus rhythm rate 92 bpm. Frequent PVCs. LAD. LVH. Nonspecific ST T wave changes. The suggestion of LVH may be impacted by her prior chest wall surgery. EKG 2.: Normal sinus rhythm rate 71 bpm. No ectopy. No acute ST T wave changes.) Discharge Plan Departure Patient Disposition: Home Clinical Impression: Acute urinary retention Ascites Qualifiers: Ascites type: other type Qualified Code(s): R18.8 - Other ascites Instructions: DI for Urinary Retention in Women Activity Restrictions/Additional Instructions: The East catheter should stay in until you are seen by Urology. I will give her contact information for Dr. Perez in [place], [place]. You need to call for an appointment. Also you have ongoing ascites, also present when seen here approximately 1 year ago. I recommend follow up with your primary care doctor. Your doctor may have records explaining the ascites, otherwise may consider additional clinical evaluation. Drink plenty of water, Tylenol as needed for pain. Return the ER for increased pain, persistent vomiting or fever. Prescriptions: No Action acetaminophen [Tylenol] 325 mg Tablet 1 tab PO PRN PRN (Reason: Pain (Scale Score 1-3)) RF: 0 [id number] 333-133-5 mg Tablet 1 tab PO BID RF: 0 aspirin 81 mg Tablet,Delayed Release (Dr/Ec) 81 mg PO DAILY RF: 0 ascorbic acid (vitamin C) [Vitamin C] 500 mg Tablet 500 mg PO DAILY RF: 0 cyanocobalamin (vitamin B-12) [Vitamin B-12] 1,000 mcg/mL Solution 1 ml IM QMONTH RF: 0 folic acid 1 mg Tablet 1 mg PO DAILY RF: 0 potassium gluconate 595 mg (99 mg) Tablet Extended Release 1 tab PO DAILY RF: 0 Chromium 1 tab PO DAILY RF: 0 Vitamin B-12 1 tab PO DAILY RF: 0 tramadol 50 mg tablet 50 mg PO Q6H PRN (Reason: pain) Qty: 10 RF: 0 tramadol 50 mg tablet 50 mg PO Q6H PRN (Reason: pain) Qty: 10 RF: 0 doxycycline hyclate 100 mg capsule 100 mg PO BID Qty: 20 RF: 0 Referrals: Francois Perez MD [Physician] - Royce Killian MD [Primary Care Provider] -
--- NOTE | 2018-11-17 20:33 | DI.CT.S_ITS ---
PROCEDURE: CT ABDOMEN PELVIS WO CON INDICATIONS: Lower abd pain. H/O hernia with mesh repair. TECHNIQUE: After the administration of oral contrast, 5 mm thick sections acquired from the diaphragms to the symphysis. 5 mm coronal and sagittal reformats were performed. For radiation dose reduction, the following was used: automated exposure control, adjustment of mA and/or kV according to patient size. COMPARISON: [facility], CT, CT ABDOMEN PELVIS WO CON, 01/05/2018, 15:11. [facility], CT, ABDOMEN/PELVIS WITHOUT CONTRAS, 10/05/2012, 10:32. FINDINGS: Image quality: Excellent. ABDOMEN: Lung bases: Mild bibasilar atelectasis. Heart size is normal. Small hiatal hernia is again noted. Solid organs: Liver is normal in size. Gallbladder is decompressed. Pancreas is normal in size. Spleen is normal in size. No adrenal nodules. Both kidneys are normal in size, without hydronephrosis or nephrolithiasis. Peritoneum and bowel: Scattered colonic diverticulosis as before. No evidence to suggest acute diverticulitis. There is extensive, diffuse scattered ascites throughout the abdomen and pelvis. There is a segment of small bowel in the left midabdomen 2 left lower abdomen demonstrating minimal circumferential bowel wall thickening which may be due in part to incomplete distention and/or surrounding ascites. There is mild distention of the stomach with normal tapering into the duodenum. Small bowel loops appear normal in caliber. No free air noted. Nodes and vessels: No retroperitoneal or mesenteric adenopathy by size criteria. Aorta and inferior vena cava are normal in size. Scattered atherosclerotic calcifications of the abdominal aorta and iliac vessels without aneurysmal dilatation. Miscellaneous: No ventral hernias. Stable postoperative changes involving the ventral abdominal wall. PELVIS: Genitourinary: Bladder wall thickness is normal. Miscellaneous: No inguinal hernias or adenopathy. Bones: No suspicious bony lesions. No acute vertebral body compression fractures. Multilevel spondylosis of the imaged spine. IMPRESSION: 1. Moderate amount of diffusely scattered ascites throughout the abdomen and pelvis. 2. Segment of mild circumferential wall thickening of the loop of small bowel in the left mid and lower abdomen which may be related to incomplete distention versus surrounding ascites. An infectious/inflammatory process may have a similar appearance. Bowel ischemia is conceivable but thought less likely. 3. Scattered colonic diverticulosis without evidence for acute diverticulitis. 4. Small hiatal hernia. No significant discrepancy with the security shift supervisor radiology preliminary report. Dictated by: Darrin Ramos M.D. on 11/18/2018 at 8:51 Approved by: Darrin Ramos M.D. on 11/18/2018 at 9:02
[2018-11-17] MEDS: SODIUM CHLORIDE 0.9% 1,000 ML 150 ML IV (20:55)
[2018-11-17 20:58] LABS: Add Manual Diff / Slide Review NO; Basophils Absolute Auto 0 /uL (0-100); Basophils Percent Auto 0.4 % (0-2); Eosinophils Absolute Auto 0 /uL (0-450); Eosinophils Percent Auto 0.3 % (2-4); Hematocrit 37.1 % (36-46); Hemoglobin 12.4 g/dL (12.0-16.0); Lymphocytes Absolute Auto 1000 /uL (1100-4500); Lymphocytes Percent Auto 11.4 % (25-40); Mean Corpuscular HGB Conc 33.5 % (30-36); Mean Corpuscular Hemoglobin 30.1 PG (26-34); Monocytes Absolute Auto 600 /uL (0-900); Monocytes Percent Auto 6.6 % (3-14); Neutrophils Absolute Auto 6800 /uL (1500-7000); Neutrophils Percent Auto 81.3 % (50-75); Platelet Count 232 X10^3/uL (150-400); Red Blood Cell Count 4.12 X10^6/uL (4.0-5.2); White Blood Cell Count 8.4 X10^3/uL (4.5-11.0)
[2018-11-17 21:13] LABS: Alanine Aminotransferase 14 IU/L (9-52); Albumin Globulin Ratio 1.1 (1.0-2.8); Alkaline Phosphatase 148 U/L (38-126); Aspartate Aminotransferase 35 IU/L (14-36); Bilirubin Total 0.4 mg/dL (0.2-1.3); Blood Urea Nitrogen 15 mg/dL (7-17); Calcium 9.6 mg/dL (8.4-10.2); Carbon Dioxide 24 mmol/L (22-32); Chloride 103 mmol/L (98-107); Globulin 3.5 g/dL (1.7-4.1); Glucose 181 mg/dL (80-110); HEMOLYSIS 23 (0-50); Lipase 176 U/L (23-300); Potassium 3.3 mmol/L (3.4-5.1); Sodium 138 mmol/L (137-145); Total Protein 7.5 g/dL (6.3-8.2)
[2018-11-17] MEDS: POTASSIUM CHLORIDE 20 MEQ/15 ML UDC PO (23:40)
[2018-11-17] MEDS: ACETAMINOPHEN 325 MG TABLET 650 MG PO (23:45)
[2018-11-18] VITALS (8 sets, daily range): BP systolic 119–156; BP diastolic 77–94; PULSE 72–82; RESP 16–19; O2SAT 95–98
[2018-11-18] MEDS: KETOROLAC 60 MG/2 ML VIAL 15 MG IV (02:27)
--- NOTE | 2018-11-18 02:40 | PC.NURSE ---
Pt states pain is moving from abdomen to chest cavity, Dr. Ryan aware and repeat EKG performed.
[2018-11-18] MEDS: SODIUM CHLORIDE 0.9% 1,000 ML 200 ML IV (04:00)
[2018-11-18 06:31] LABS: Appearance Urine UA CLEAR; Bilirubin Urine UA NEGATIVE (NEGATIVE); Glucose Urine UA NEGATIVE (Negative); Ketones Urine UA NEGATIVE (NEGATIVE); Leukocyte Esterase Urine UA 2+ (NEGATIVE); Nitrite Urine UA NEGATIVE (Negative); Occult Blood Urine UA 1+ (Negative); Protein Urine UA 2+ (Negative); Specific Gravity Urine UA 1.015 (1.000-1.035); Urobilinogen Urine UA 0.2 E.U./dL (0.2)
[2018-11-18 06:34] LABS: Urine Amphetamines Negative (Negative); Urine Barbiturates Negative (Negative); Urine Benzodiazepines Positive (Negative); Urine Cocaine Negative (Negative); Urine MDMA Negative (Negative); Urine Methadone Negative (Negative); Urine Methamphetamines Negative (Negative); Urine Morphine/Opi cutoff 2000 Negative (Negative); Urine Oxycodone Negative (Negative); Urine Phencyclidine Negative (Negative); Urine Tetrahydrocannabinol Negative (Negative); Urine Tricyclic Antidepressant Negative (Negative)
[2018-11-18 06:38] LABS: Color Urine UA Straw
[2018-11-18 06:40] LABS: Bacteria Urine Occasional (0-1); Culture Indicated Urine Specimen Cultured; RBC Urine 0-1/HPF (0-5/HPF); Squamous Epithelial Cell Urine 0-1 /HPF (0-5/HPF); WBC Urine 0-1/HPF (0-5/HPF)
== END 2018-11-18 09:01 | disposition home or self-care (01) ==
PROVIDERS: Emergency Provider Emergency Medicine; Family Provider Family Medicine; PCP Family Medicine
DX: R33.8 Other retention of urine (principal); R18.8 Other ascites; R10.30 Lower abdominal pain, unspecified
CPT/HCPCS: 36415; 51798; 74176; 80053; 80305; 81001; 83690; 85025; 87077; 87086; 87186; 93005; 96361; 96374; 96375; 99285; J1885; J2405

== ENCOUNTER 2018-11-19 10:14 | Emergency (ER) | payer OTHER, SELFPAY ==
[2018-11-19 10:29] VITALS: BP 141/92; PULSE 88; RESP 18; TEMP 37.1; O2SAT 100; BMI 21.9
--- NOTE | 2018-11-19 11:31 | ED.FEMALEGU ---
HPI - Female Genitourinary <Darleen XiongMERRITT - Last Filed: 11/19/18 16:24> General Chief complaint: Urogenital-Female Stated complaint: Pelvic Pain, was at ER yesterday Time Seen by Provider: 11/19/18 11:05 Source: patient Mode of arrival: ambulatory Limitations: no limitations History of Present Illness HPI Narrative: 68-year-old female was evaluated yesterday for the same, presents to the emergency department for abdominal pain that is been going on since 2009 after hernia repair. She reports the last 3 days it has increased in severity and complains of a lower pelvic ache rated at about 10/10 that is worse when she tries to lift things. She was evaluated in the emergency department yesterday with a CT scan that showed buth-py-gsnasroo ascites, a surgical consult was conducted and was determined that she was not a surgical candidate. She was also diagnosed with urinary retention, a East was placed and she reports it is draining at this time. She states that when she gets ascites ?every poor of her body weeks out and water seats out of her eyes and her reports . She was told to come back this morning as the radiologist is present in could drain her ascites. She states she did not want to have a bowel movement as she was scared of getting a urinary tract infection. She reports 3 chills 3 days ago but none today or yesterday. Patient denies any chest pain, shortness of breath, fevers, nausea, vomiting, constipation, diarrhea, or syncope. She denies swelling in legs or jaundice. During history and physical patient continually reports toe for stated she has been with all of the doctors because they do not drain her ascites or explain why she weaps fluid for months at a time. Related Data Home Medications Medication Instructions Recorded Confirmed Chromium 1 tab PO DAILY 01/05/18 01/05/18 Vitamin B-12 1 tab PO DAILY 01/05/18 01/05/18 acetaminophen [Tylenol] 1 tab PO PRN PRN 01/05/18 01/05/18 ascorbic acid (vitamin C) [Vitamin 500 mg PO DAILY 01/05/18 01/05/18 C] aspirin 81 mg PO DAILY 01/05/18 01/05/18 ocjxjyh-aykwaifei-znlg 1 tab PO BID 01/05/18 01/05/18 cyanocobalamin (vitamin B-12) 1 ml IM QMONTH 01/05/18 01/05/18 [Vitamin B-12] folic acid 1 mg PO DAILY 01/05/18 01/05/18 potassium gluconate 1 tab PO DAILY 01/05/18 01/05/18 Previous Rx's Medication Instructions Recorded tramadol 50 mg PO Q6H PRN #10 tab 01/05/18 tramadol 50 mg PO Q6H PRN #10 tab 01/05/18 doxycycline hyclate 100 mg PO BID #20 cap 10/30/18 cephalexin 500 mg PO BID 7 Days #14 cap 11/19/18 Allergies Allergy/AdvReac Type Severity Reaction Status Date / Time cholecalciferol (vitamin D3) AdvReac Unknown Verified 11/17/18 20:06 [From Vitamin D3] iodine AdvReac Unknown Verified 11/17/18 20:06 PAIN MEDICATIONS Allergy Unknown Uncoded 10/30/18 09:15 Review of Systems <MERRITT Yuan - Last Filed: 11/19/18 16:24> Review of Systems REVIEW OF SYSTEMS: GENERAL: Denies fever, chills, malaise, or wt. loss. HENT: No head trauma, sore throat, or dysphagia. EYES: No loss of vision, double vision, eye pain, or irritation. CARDIOVASCULAR: No chest pain, palpitations, or orthopnea. RESPIRATORY: No shortness of breath or cough. GASTROINTESTINAL: Complains of abdominal/lower pelvic pain, see HPI GENITOURINARY: Patient reports urinary retention which was treated last night, see HPI. No vaginal discharge or dyspareunia. Denies concerns for STIs MUSCULOSKELETAL: No pain, weakness, or trauma. INTEGUMENTARY: No rash, lesions, or pruritus. NEURO: No numbness, tingling, memory loss, confusion, or headaches. PSYCH: No behavior or mood changes. PFSH <MERRITT Yuan - Last Filed: 11/19/18 16:24> Medical History Acute renal failure (Acute) Breast cancer, left (Acute) Diverticulitis (Acute) Hyperparathyroidism (Acute) Inguinal hernia, incarcerated (Acute) Renal insufficiency (Acute) Urinary retention (Acute) Surgical History History of appendectomy (Acute) History of left mastoidectomy (Acute) History of partial colectomy (Acute) Social History Smoking Status: Never smoker substance use type: does not use additional social history: She lives locally on [facility]. Social History Smoking Status: Never smoker substance use type: does not use additional social history: She lives locally on [facility]. Exam <MERRITT Yuan - Last Filed: 11/19/18 16:24> Initial Vital Signs Initial Vital Signs: Vital Signs Temperature 98.7 F 11/19/18 10:29 Pulse Rate 88 11/19/18 10:29 Respiratory Rate 18 11/19/18 10:29 Blood Pressure 141/92 H 11/19/18 10:29 Pulse Oximetry 100 11/19/18 10:29 PHYSICAL EXAMINATION: GENERAL: Well groomed, alert, and cooperative. Answers questions promptly and appropriately. Vital signs noted. HENT: Normocephalic, atraumatic. Hearing intact. Oral mucosa is pink and moist. EYES: Conjunctiva pink, sclera white, no periorbital swelling. CARDIOVASCULAR: S1 and S2 sounds normal. Regular rate and rhythm, no murmurs, clicks, or bruits. No pedal edema. RESPIRATORY: Normal respiratory rate, trachea midline, airway patent. No stridor, nasal flaring or accessory muscle use. Lungs are clear in all rosen without wheeze, rhonchi, or crackles. GASTROINTESTINAL: Bowel sounds normoactive. Abdomen is soft and slight lower abdominal tenderness with deep palpation, no rebound tenderness. No organomegaly, no palpable masses. GENITALURINARY: No flank tenderness. East catheter remains in place and is currently draining. MUSCULOSKELETAL: Normal gait and coordination. Equal tone and mass bilaterally. EXTREMITIES: CMS intact, no pedal edema. SKIN: Warm, dry, soft, appropriate color for ethnicity. No lesions, rashes, or wounds. NEURO: Alert and Oriented X 3. Good coordination. No ataxia, or sensory deficits. PSYCH: Appropriate affect and mood. <Martine Ponce DO - Last Filed: 11/20/18 07:06> Initial Vital Signs Initial Vital Signs: Vital Signs Temperature 98.7 F 11/19/18 10:29 Pulse Rate 88 11/19/18 10:29 Respiratory Rate 18 11/19/18 10:29 Blood Pressure 141/92 H 11/19/18 10:29 Pulse Oximetry 100 11/19/18 10:29 Course <MERRITT Yuan - Last Filed: 11/19/18 16:24> Course Narrative: After extensively reviewing the patient test results and records from last evening, explained to patient that she had had as surgical consult and that her ascites was not drainable at this time. I reviewed her labs with her, I stated that her urinary culture was back and showed that she had a urinary tract infection. Explained the importance of follow-up with Urology and decided to start her on an antibiotic to prevent further complication. Additionally, explained the importance of further follow-up for monitoring of her ascites. Patient verbalized understanding but states ?every time a follow-up the ascites reabsorbed the my body in they are unable to tested, I really wanted know why it is happening. I continued to explain that we could not determine anything that was emergently happening at this time. Vital Signs - 8 hr 11/19/18 10:29 11/19/18 13:11 Temperature 98.7 F Pulse Rate 88 90 Respiratory Rate 18 12 Blood Pressure 141/92 H 179/98 H Pulse Oximetry 100 98 <Martine Ponce DO - Last Filed: 11/20/18 07:06> Vital Signs - 8 hr 11/19/18 10:29 11/19/18 13:11 Temperature 98.7 F Pulse Rate 88 90 Respiratory Rate 18 12 Blood Pressure 141/92 H 179/98 H Pulse Oximetry 100 98 MDM - Female Genitourinary <MERRITT Yuan - Last Filed: 11/19/18 16:24> Medical Records Attestation: I reviewed the patient's medical records. Lab Data Attestation: I reviewed the patient's lab results. MDM Narrative Medical decision making narrative: Symptoms are most likely caused by urinary tract infection. I am unsure the cause of her ascites, however she had extensive workup last night including a surgical consult and was determined that she was not a surgical candidate and that she was safe to return home. I am unaware how the patient came to believe that she needed to return today to have and IR procedure to drain her ascites with this in the indicated (due to CT findings, and exam). Strict return precautions were given and follow-up instructions discussed. Discharge Plan Departure Patient Disposition: Home Clinical Impression: Urinary tract infection Qualifiers: Urinary tract infection type: acute cystitis Hematuria presence: without hematuria Qualified Code(s): N30.00 - Acute cystitis without hematuria Discharge Date/Time: 11/19/18 13:12 Interventions: ED Discharge Assessment Last Done: 11/19/18 13:11 Instructions: DI for Urinary Tract Infection (UTI) Activity Restrictions/Additional Instructions: Thank you for entrusting me with your care today. As discussed, it appears that you have a urinary tract infection due to your culture that resulted today which was obtained last night. According to the notes from last night, you had a surgical consult and the surgeon determined they you were not a candidate to drain the ascites there is only a small amount that was present. Please follow up with her primary care provider as well as Dr. Perez in Urology as instructed to last night for further evaluation and testing if needed. Return to the emergency department if you developed chest pain, SOB, high fevers, seizures, or syncope. Prescriptions: New cephalexin 500 mg capsule 500 mg PO BID 7 Days Qty: 14 RF: 0 No Action acetaminophen [Tylenol] 325 mg Tablet 1 tab PO PRN PRN (Reason: Pain (Scale Score 1-3)) RF: 0 wokfpyl-dsnubivhy-nnqk 333-133-5 mg Tablet 1 tab PO BID RF: 0 aspirin 81 mg Tablet,Delayed Release (Dr/Ec) 81 mg PO DAILY RF: 0 ascorbic acid (vitamin C) [Vitamin C] 500 mg Tablet 500 mg PO DAILY RF: 0 cyanocobalamin (vitamin B-12) [Vitamin B-12] 1,000 mcg/mL Solution 1 ml IM QMONTH RF: 0 folic acid 1 mg Tablet 1 mg PO DAILY RF: 0 potassium gluconate 595 mg (99 mg) Tablet Extended Release 1 tab PO DAILY RF: 0 Chromium 1 tab PO DAILY RF: 0 Vitamin B-12 1 tab PO DAILY RF: 0 tramadol 50 mg tablet 50 mg PO Q6H PRN (Reason: pain) Qty: 10 RF: 0 tramadol 50 mg tablet 50 mg PO Q6H PRN (Reason: pain) Qty: 10 RF: 0 doxycycline hyclate 100 mg capsule 100 mg PO BID Qty: 20 RF: 0 Referrals: Royce Killian MD [Primary Care Provider] - <Martine Ponce DO - Last Filed: 11/20/18 07:06> Cosign ED Attending Cosignature Attestation: I was immediately available in the department for consultation. Documentation has been reviewed. I agree with assessment and plan.
[2018-11-19 13:11] VITALS: BP 179/98; PULSE 90; RESP 12; O2SAT 98
== END 2018-11-19 13:12 | disposition home or self-care (01) ==
PROVIDERS: Emergency Provider Nurse Practitioner; Family Provider Family Medicine; PCP Family Medicine
DX: N30.00 Acute cystitis without hematuria (principal)
CPT/HCPCS: 99282; 99283

== ENCOUNTER → 2020-10-04 10:38 | Outpatient (CLI) | payer MEDICARE, SELFPAY ==
[2020-10-04 19:01] LABS: Add Manual Diff / Slide Review NO; Basophils Absolute Auto 0 /uL (0-100); Basophils Percent Auto 1.1 % (0-2); Eosinophils Absolute Auto 100 /uL (0-450); Hematocrit 39.8 % (36-46); Hemoglobin 13.4 g/dL (12.0-16.0); Lymphocytes Absolute Auto 1600 /uL (1100-4500); Lymphocytes Percent Auto 37.3 % (25-40); Mean Corpuscular HGB Conc 33.6 % (30-36); Mean Corpuscular Hemoglobin 30.5 PG (26-34); Mean Corpuscular Volume 90.8 fL (80-100); Monocytes Absolute Auto 300 /uL (0-900); Monocytes Percent Auto 7.3 % (3-14); Neutrophils Absolute Auto 2300 /uL (1500-7000); Neutrophils Percent Auto 52.3 % (50-75); Platelet Count 261 X10^3/uL (150-400); Red Blood Cell Count 4.38 X10^6/uL (4.0-5.2); White Blood Cell Count 4.4 X10^3/uL (4.5-11.0)
[2020-10-04 19:26] LABS: Alanine Aminotransferase 19 IU/L (<35); Albumin 4.1 g/dL (3.5-5.0); Albumin Globulin Ratio 1.1 (1.0-2.8); Alkaline Phosphatase 137 U/L (38-126); Aspartate Aminotransferase 38 IU/L (14-36); BUN Creatinine Ratio 14.7 (6-22); Blood Urea Nitrogen 11 mg/dL (7-17); Calcium 9.7 mg/dL (8.4-10.2); Carbon Dioxide 26 mmol/L (22-32); Chloride 105 mmol/L (98-107); Estimated Glomerular Filt Rate > 60.0 mL/min (>60); Gamma Glutamyl Transpeptidase 116 U/L (12-43); Globulin 3.8 g/dL (1.7-4.1); Glucose 96 mg/dL (80-110); HEMOLYSIS < 15 (0-50); Lipase 199 U/L (23-300); Potassium 4.5 mmol/L (3.4-5.1); Sodium 138 mmol/L (137-145); Total Protein 7.9 g/dL (6.3-8.2)
[2020-10-04 19:28] LABS: Hemoglobin A1C% w Est Avg Glu 5.2 % (4.0-6.0)
[2020-10-04 19:41] LABS: Vitamin D 25 Hydroxy (D3) 28.9 ng/mL (30.0-100.0)
[2020-10-04 20:31] LABS: Folate > 20.0 ng/mL (2.76-20.0); Vitamin B12 449 pg/mL (239-931)
== END ==
PROVIDERS: Family Provider Family Medicine; PCP Family Medicine; Visit Provider Family Medicine
DX: D49.0 Neoplasm of unspecified behavior of digestive system (principal); D72.819 Decreased white blood cell count, unspecified; E21.3 Hyperparathyroidism, unspecified; E21.5 Disorder of parathyroid gland, unspecified; R73.9 Hyperglycemia, unspecified; M81.0 Age-related osteoporosis without current pathological fracture
CPT/HCPCS: 80053; 82306; 82607; 82746; 82977; 83036; 83690; 85025

== ENCOUNTER 2020-10-09 09:00 | Emergency (ER) | payer MEDICARE, SELFPAY ==
[2020-10-09] VITALS (9 sets, daily range): BP systolic 136–138; BP diastolic 71–91; PULSE 64–85; RESP 19; TEMP 37.9; O2SAT 83–100; BMI 24.0
--- NOTE | 2020-10-09 09:11 | ED_ITS ---
HPI - Abdominal Pain General Chief Complaint: Abdominal Pain Stated Complaint: Urine retention/ABD pain Time Seen by Provider: 10/09/20 09:08 Source: patient and EMS Mode of arrival: EMS History of Present Illness HPI narrative: [place] lower abdominal pain fever chills dysuria and urgency. Also no bowel movement for 5 days. Patient states she has a liver condition that she is not able take any ggud-nzl-psjucqk or prescribed medications other than a limited antibiotics for UTIs. She does not not not want anything for fever. She does not not not want anything for pain. She agree with IV fluids laboratory studies and CT scan without contrast. Patient has prefer in her life homeopathic treatment. Does self urinary catheterizations at home. History UTIs in the past. Denies any hematuria. Related Data Home Medications Medication Instructions Recorded Confirmed ascorbic acid (vitamin C) 500 mg 500 mg PO DAILY 01/05/18 10/16/20 tablet (Vitamin C) lvypbsy-jkgenityw-jech 333 mg-133 1 tab PO BID 01/05/18 10/16/20 mg-5 mg tablet folic acid 1 mg tablet 1 mg PO DAILY 01/05/18 10/16/20 potassium gluconate 595 mg (99 mg) 1 tab PO DAILY 01/05/18 10/16/20 tablet,extended release Previous Rx's Medication Instructions Recorded cyanocobalamin (vitamin B-12) 1,000 mcg IM QMONTH #1 ml 09/06/20 1,000 mcg/mL injection solution ciprofloxacin HCl 250 mg tablet 250 mg PO BID 10 Days #20 tab 10/16/20 amoxicillin 875 mg tablet 875 mg PO BID 7 Days #14 tab 10/18/20 Allergies Allergy/AdvReac Type Severity Reaction Status Date / Time ergocalciferol (vitamin D2) Allergy Mild HEART RACE Verified 10/16/20 10:49 [From Vitamin D2] morphine Allergy Unknown Verified 10/16/20 10:49 codeine AdvReac Severe stomach Verified 10/16/20 10:49 cramps NSAIDS (Non-Steroidal AdvReac Intermediate severe GI Verified 10/16/20 10:49 Anti-Inflamma upset cholecalciferol (vitamin D3) AdvReac Unknown Verified 10/16/20 10:49 [From Vitamin D3] iodine AdvReac Unknown Verified 10/16/20 10:49 Opioids - Morphine Analogues AdvReac Unknown Verified 10/16/20 10:49 fentanyl AdvReac urinary Verified 10/16/20 10:49 retention PAIN MEDICATIONS Allergy Unknown Uncoded 10/16/20 10:49 Review of Systems Review of Systems Narrative: GENERAL: Complaint chills, fatigue, malaise, fever, sweats. HEENT: Denies sinus pain, ear pain, sore throat RESPIRATORY: Denies dyspnea, cough CARDIOVASCULAR: Denies chest pain, palpitations GASTROINTESTINAL: Denies nausea, vomiting, complaint abdominal pain, complains constipation : Complaint dysuria, frequency, denies hematuria MUSCULOSKELETAL: denies muscle or bony pain SKIN: Denies rash, skin lesions NEUROLOGIC: Denies weakness, numbness ROS Unobtainable: All systems reviewed & are unremarkable except as noted in HPI and below Patient History Medical History Acute renal failure Breast cancer, left Diverticulitis History of anemia Hyperparathyroidism Inguinal hernia, incarcerated Renal insufficiency Urinary retention Surgical History History of appendectomy History of left mastoidectomy History of partial colectomy Social History Smoking Status: Never smoker substance use type: does not use additional social history: She lives locally on [facility]. Smoking Status: Never smoker alcohol intake frequency: 0-2 drinks per day Substance Use Type: does not use Exam Initial Vital Signs Initial Vital Signs: Vital Signs Temperature 100.3 F H 10/09/20 09:08 Pulse Rate 85 10/09/20 09:08 Respiratory Rate 19 10/09/20 09:08 Blood Pressure 138/91 H 10/09/20 09:08 Pulse Oximetry 98 10/09/20 09:08 Course Course Course Narrative: Improvement here with laxatives and enemas. Had good bowel movements Orders Ordered: Discontinued Medications Magnesium Citrate (Magnesium Citrate 300 Ml Solution) 300 ml PO NOW ONE Stop: 10/09/20 14:20 Last Admin: 10/09/20 14:36 Dose: 300 ml Documented by: [email or web address] Mineral Oil (Mineral Oil 1 Each Enema) 1 each CO NOW ONE Stop: 10/09/20 16:08 Last Admin: 10/09/20 16:09 Dose: 1 each Documented by: GHANSHYAM Reevaluation(s) Reevaluation #1: Reviewed results with patient. Patient did respond very well to enema treatments as well as laxative. Had good bowel movements Time: 17:09 Consultations Consultation #1: Attempted to call primary care provider Dr. Royce Killian, however there is no on-call provider. Only voicemail that instructs will call the next following business day. It is 5:28 p.m.. Time: 17:28 Vital Signs Vital signs: Vital Signs - 8 hr 10/09/20 10:04 10/09/20 10:30 10/09/20 11:00 Pulse Rate 66 75 64 Blood Pressure Pulse Oximetry 99 100 86 L 10/09/20 11:30 10/09/20 12:00 10/09/20 16:05 Pulse Rate 74 71 Blood Pressure Pulse Oximetry 83 L 98 87 L 10/09/20 16:15 Pulse Rate 78 Blood Pressure 136/71 Pulse Oximetry 100 MDM - Abdominal Pain Differential Diagnosis Differential diagnosis: Likely abdominal pain, acute appendicitis, calculus of kidney, constipation, diverticulitis, small bowel obstruction and other (UTI) Lab Data Attestation: I reviewed the patient's lab results. Result diagrams: 10/09/20 09:35 10/09/20 09:35 Labs: Lab Results 10/09/20 10/09/20 10/09/20 Range/Units 09:35 09:35 09:35 WBC 5.7 (4.5-11.0) X10^3/uL RBC 4.24 (4.0-5.2) X10^6/uL Hgb 12.6 (12.0-16.0) g/dL Hct 37.9 (36-46) % MCV 89.2 (80-100) fL MCH 29.7 (26-34) PG MCHC 33.3 (30-36) % RDW 13.0 (11.6-14.8) % Plt Count 248 (150-400) X10^3/uL Neut % (Auto) 82.0 H (50-75) % Lymph % (Auto) 13.5 L (25-40) % [place] % (Auto) 4.0 (3-14) % Eos % (Auto) 0.1 L (2-4) % Baso % (Auto) 0.4 (0-2) % Neut # (Auto) 4700 (3310-9782) /uL Lymph # (Auto) 800 L (1970-7780) /uL [place] # (Auto) 200 (0-900) /uL Eos # (Auto) 0 (0-450) /uL Baso # (Auto) 0 (0-100) /uL Sodium 141 (137-145) mmol/L Potassium 3.6 (3.4-5.1) mmol/L Chloride 109 H (98-107) mmol/L Carbon Dioxide 25 (22-32) mmol/L BUN 11 (7-17) mg/dL Creatinine 0.83 (0.52-1.04) mg/dL Estimated GFR > 60.0 (>60) mL/min BUN/Creatinine Ratio 13.3 (6-22) Glucose 109 (80-110) mg/dL Lactate 1.5 (0.7-2.1) mmol/L Calcium 9.2 (8.4-10.2) mg/dL Total Bilirubin 0.6 (0.2-1.3) mg/dL AST 34 (14-36) IU/L ALT 18 (<35) IU/L Alkaline Phosphatase 136 H (38-126) U/L Total Protein 7.5 (6.3-8.2) g/dL Albumin 3.9 (3.5-5.0) g/dL Globulin 3.6 (1.7-4.1) g/dL Albumin/Globulin Ratio 1.1 (1.0-2.8) Procalcitonin (<0.5) ng/mL Urine RBC (0-5/HPF) Urine WBC (0-5/HPF) Ur Squamous Epith Cells (0-5/HPF) Urine Bacteria (None) Ur Culture Indicated? 10/09/20 10/09/20 Range/Units 09:35 11:20 WBC (4.5-11.0) X10^3/uL RBC (4.0-5.2) X10^6/uL Hgb (12.0-16.0) g/dL Hct (36-46) % MCV (80-100) fL MCH (26-34) PG MCHC (30-36) % RDW (11.6-14.8) % Plt Count (150-400) X10^3/uL Neut % (Auto) (50-75) % Lymph % (Auto) (25-40) % [place] % (Auto) (3-14) % Eos % (Auto) (2-4) % Baso % (Auto) (0-2) % Neut # (Auto) (2571-3244) /uL Lymph # (Auto) (2624-1324) /uL [place] # (Auto) (0-900) /uL Eos # (Auto) (0-450) /uL Baso # (Auto) (0-100) /uL Sodium (137-145) mmol/L Potassium (3.4-5.1) mmol/L Chloride (98-107) mmol/L Carbon Dioxide (22-32) mmol/L BUN (7-17) mg/dL Creatinine (0.52-1.04) mg/dL Estimated GFR (>60) mL/min BUN/Creatinine Ratio (6-22) Glucose (80-110) mg/dL Lactate (0.7-2.1) mmol/L Calcium (8.4-10.2) mg/dL Total Bilirubin (0.2-1.3) mg/dL AST (14-36) IU/L ALT (<35) IU/L Alkaline Phosphatase (38-126) U/L Total Protein (6.3-8.2) g/dL Albumin (3.5-5.0) g/dL Globulin (1.7-4.1) g/dL Albumin/Globulin Ratio (1.0-2.8) Procalcitonin 0.14 (<0.5) ng/mL Urine RBC 5-10/hpf H (0-5/HPF) Urine WBC 0-1/hpf (0-5/HPF) Ur Squamous Epith Cells 0-1 /hpf (0-5/HPF) Urine Bacteria None seen (None) Ur Culture Indicated? Cult not indicated Point of care testing: Urine Dip Bedside Urine Glucose Negative Bedside Urine Bilirubin - Negative Bedside Urine Ketone - Negative Urine Specific [place] 1.015 Bedside Urine Occult Blood ++ Bedside Urine pH 8.5 Bedside Urine Protein - Negative Bedside Urine Urobilinogen - Negative Bedside Urine Nitrite - Negative Bedside Urine Leukocytes - Negative Esterase Imaging Data CT scan - abdomen/pelvis: Radiologist's Impression: [address] [id number] Scan ReportSigned Patient: Eliz Fisher [facility]#: [id number]: 1950Acct:[id number]/Sex: 70 / FDate of Service: 10/09/20Loc: EDAccession Number: [id number] Procedure: CT abdomen pelvis wo con Ordering Provider: Royce Erazo MD PROCEDURE: CT ABDOMEN PELVIS WO CON INDICATIONS: Lower abdominal pain/fever TECHNIQUE: Noncontrast 5 mm thick sections acquired from the diaphragms to the symphysis. 5 mm coronal and sagittal reformats were then performed. For radiation dose reduction, the following was used: automated exposure control, adjustment of mA and/or kV according to patient size. COMPARISON: [facility], CT, ABDOMEN/PELVIS WITHOUT CONTRAS, 10/05/2012, 10:32. [facility], CT, CT ABDOMEN PELVIS WO CON, 01/05/2018, 15:11. [facility], CT, CT ABDOMEN PELVIS WO CON, 11/17/2018, 22:19. FINDINGS: Image quality: Excellent. ABDOMEN: Lung bases: Lung bases are clear. Heart size is normal. There is a small hiatal hernia. Solid organs: Liver is normal in size. Gallbladder is normal . Pancreas is normal in contours. Spleen is normal in size. No adrenal nodules. Kidneys are normal in size, without hydronephrosis or nephrolithiasis. Peritoneum and bowel: Unenhanced bowel loops demonstrate normal wall thickness and caliber. Postsurgical changes in distal sigmoid colon with anastomosis. There is a large amount of stool in colon. Scattered colonic diverticula are present. No CT findings to suggest acute diverticulitis. There is a small amount of free fluid. No free air. Nodes and vessels: No retroperitoneal or mesenteric adenopathy by size criteria. Aorta and inferior vena cava are normal in caliber. Mild atherosclerotic calcification Miscellaneous: No ventral hernias. PELVIS: Genitourinary: Bladder wall thickness is normal. Uterus is absent. Ovaries are not visualized. Miscellaneous: No inguinal hernias or adenopathy. Bones: No suspicious bony lesions. No vertebral body compression fractures. Degenerative changes in lumbar spine. IMPRESSION: 1. There is a small amount of free fluid in peritoneal cavity. Etiology for the free fluid is not definitively identified. 2. Diverticulosis without acute diverticulitis. 3. A large amount of stool in colon. 4. Small hiatal hernia. Dictated by: Federico Marie M.D. on 10/09/2020 at 10:28 Approved by: Federico Marie M.D. on 10/09/2020 at 10:36 MDM Narrative Medical decision making narrative: Appropriate for discharge home. Temperature noted on arrival however patient was wrapped up and layers of blankets from her left well as transfer in ambulance. It is very hot out, 85?. Exam and imaging and treatment here reassuring. Not toxic at discharge. Renal function noted. Not in renal failure. Patient has provided urine here. Patient has been drinking warm water as she requested. No hypotension or hypertension. Again temperature noted because she was wrapped in warm blankets for year Flight as well as ambulance transfer from air flight to here. We did speak with patient regarding discharge home and at this time no indication for admission as her chief complaint of at constipation has improved. Patient refuses any medications other than IV fluids and enema. She states she will not take any yeyy-dor-ggunlvl medication or prescribed medication 5:37 p.m.. Nurse Destiny as well as nurse Poornima has spoken patient reasons why she is being discharged home. And not admitted. No indication for admission at this time. No renal failure. Is tolerating by mouth. Destiny did contact administered on-call, Etelvina, aware of patient's questions and concerns. Discharge Plan Departure Patient Disposition: Home Clinical Impression: Constipation Qualifiers: Constipation type: unspecified constipation type Qualified Code(s): K59.00 - Constipation, unspecified Instructions: DI for Constipation Activity Restrictions/Additional Instructions: Keep well hydrated. Be sure to continue good fiber diet including cells vegetables fruits. Drink plenty of water. May take xkgg-vnp-yjoyhba fiber enhancements. See family doctor this week for recheck. Return if worse or any questions or concerns Prescriptions: No Action amoxicillin 875 mg tablet 875 mg PO BID 7 Days Qty: 14 RF: 0 hzvwtvk-wilgwjdyq-ukrv 333-133-5 mg Tablet 1 tab PO BID RF: 0 ascorbic acid (vitamin C) [Vitamin C] 500 mg Tablet 500 mg PO DAILY RF: 0 folic acid 1 mg Tablet 1 mg PO DAILY RF: 0 potassium gluconate 595 mg (99 mg) Tablet Extended Release 1 tab PO DAILY RF: 0 cyanocobalamin (vitamin B-12) 1,000 mcg/mL solution 1,000 mcg IM QMONTH Qty: 1 RF: 0 ciprofloxacin HCl 250 mg tablet 250 mg PO BID 10 Days Qty: 20 RF: 0 Referrals: Royce Killian MD [Primary Care Provider] -
[2020-10-09 09:59] LABS: Add Manual Diff / Slide Review NO; Basophils Absolute Auto 0 /uL (0-100); Basophils Percent Auto 0.4 % (0-2); Eosinophils Absolute Auto 0 /uL (0-450); Eosinophils Percent Auto 0.1 % (2-4); Hematocrit 37.9 % (36-46); Hemoglobin 12.6 g/dL (12.0-16.0); Lymphocytes Absolute Auto 800 /uL (1100-4500); Lymphocytes Percent Auto 13.5 % (25-40); Mean Corpuscular HGB Conc 33.3 % (30-36); Mean Corpuscular Hemoglobin 29.7 PG (26-34); Mean Corpuscular Volume 89.2 fL (80-100); Monocytes Absolute Auto 200 /uL (0-900); Neutrophils Absolute Auto 4700 /uL (1500-7000); Platelet Count 248 X10^3/uL (150-400); Red Blood Cell Count 4.24 X10^6/uL (4.0-5.2); White Blood Cell Count 5.7 X10^3/uL (4.5-11.0)
--- NOTE | 2020-10-09 10:05 | DI.CT.S_ITS ---
PROCEDURE: CT ABDOMEN PELVIS WO CON INDICATIONS: Lower abdominal pain/fever TECHNIQUE: Noncontrast 5 mm thick sections acquired from the diaphragms to the symphysis. 5 mm coronal and sagittal reformats were then performed. For radiation dose reduction, the following was used: automated exposure control, adjustment of mA and/or kV according to patient size. COMPARISON: [facility], CT, ABDOMEN/PELVIS WITHOUT CONTRAS, 10/05/2012, 10:32. [facility], CT, CT ABDOMEN PELVIS WO CON, 01/05/2018, 15:11. [facility], CT, CT ABDOMEN PELVIS WO CON, 11/17/2018, 22:19. FINDINGS: Image quality: Excellent. ABDOMEN: Lung bases: Lung bases are clear. Heart size is normal. There is a small hiatal hernia. Solid organs: Liver is normal in size. Gallbladder is normal . Pancreas is normal in contours. Spleen is normal in size. No adrenal nodules. Kidneys are normal in size, without hydronephrosis or nephrolithiasis. Peritoneum and bowel: Unenhanced bowel loops demonstrate normal wall thickness and caliber. Postsurgical changes in distal sigmoid colon with anastomosis. There is a large amount of stool in colon. Scattered colonic diverticula are present. No CT findings to suggest acute diverticulitis. There is a small amount of free fluid. No free air. Nodes and vessels: No retroperitoneal or mesenteric adenopathy by size criteria. Aorta and inferior vena cava are normal in caliber. Mild atherosclerotic calcification Miscellaneous: No ventral hernias. PELVIS: Genitourinary: Bladder wall thickness is normal. Uterus is absent. Ovaries are not visualized. Miscellaneous: No inguinal hernias or adenopathy. Bones: No suspicious bony lesions. No vertebral body compression fractures. Degenerative changes in lumbar spine. IMPRESSION: 1. There is a small amount of free fluid in peritoneal cavity. Etiology for the free fluid is not definitively identified. 2. Diverticulosis without acute diverticulitis. 3. A large amount of stool in colon. 4. Small hiatal hernia. Dictated by: Federico Marie M.D. on 10/09/2020 at 10:28 Approved by: Federico Marie M.D. on 10/09/2020 at 10:36
[2020-10-09 10:12] LABS: Lactate (Lactic Acid) 1.5 mmol/L (0.7-2.1)
[2020-10-09 10:15] LABS: Alanine Aminotransferase 18 IU/L (<35); Albumin 3.9 g/dL (3.5-5.0); Albumin Globulin Ratio 1.1 (1.0-2.8); Alkaline Phosphatase 136 U/L (38-126); Aspartate Aminotransferase 34 IU/L (14-36); BUN Creatinine Ratio 13.3 (6-22); Bilirubin Total 0.6 mg/dL (0.2-1.3); Blood Urea Nitrogen 11 mg/dL (7-17); Calcium 9.2 mg/dL (8.4-10.2); Carbon Dioxide 25 mmol/L (22-32); Chloride 109 mmol/L (98-107); Estimated Glomerular Filt Rate > 60.0 mL/min (>60); Globulin 3.6 g/dL (1.7-4.1); Glucose 109 mg/dL (80-110); HEMOLYSIS < 15 (0-50); Potassium 3.6 mmol/L (3.4-5.1); Sodium 141 mmol/L (137-145); Total Protein 7.5 g/dL (6.3-8.2)
[2020-10-09 10:30] LABS: Procalcitonin 0.14 ng/mL (<0.5)
[2020-10-09 11:39] LABS: Bacteria Urine None Seen
[2020-10-09 12:06] LABS: Culture Indicated Urine Cult Not Indicated; RBC Urine 5-10/HPF (0-5/HPF); Squamous Epithelial Cell Urine 0-1 /HPF (0-5/HPF); WBC Urine 0-1/HPF (0-5/HPF)
[2020-10-09] MEDS: MAGNESIUM CITRATE 300 ML SOLUTION PO (14:36)
--- NOTE | 2020-10-09 16:07 | PC.NURSE ---
Went to room after patient pushed the call light. Another nurse arrived on scene when she heard that the patient was asking for pain medication. The nurse explained that a professor of social work would be coming in to help her with her business after discharge from the ER. I put the pulse oximeter on the patient after she said that she felt like her body was earth-quaking. Her vitals looked great. I stayed behind and patient stated that the place where pee comes out was hurting so I told her that I would inform the nurse.
[2020-10-09] MEDS: MINERAL OIL 1 EACH ENEMA PR (16:09)
--- NOTE | 2020-10-09 16:11 | PC.NURSE ---
Patient with moderate size soft brown stool;
--- NOTE | 2020-10-09 16:16 | PC.NURSE ---
Patient used the call light again. I went to answer the call light and another nurse was already in the room. The patient asked specifically for me and the nurse said it just so happened I was there. The patient asked if she could stay the night with me tonight. Before I could say anything, the nurse took control of the situation and told the patient that that is not allowed at this hospital and that the ER would be discharging the patient. I left the room because the patient mouthed to me that she needed to speak with me. The nurse asked me to not re-enter the room and that she would take care of the patient's needs.
--- NOTE | 2020-10-09 17:35 | PC.NURSE ---
Spoke to two of pts friends that called to beg us to admit her friend. It was explained to the pt, as well as her friends that she was medically cleared and did not meet the requirements for admission. The pt was provided with the phone numbers for local hotels and offered a taxi voucher to get her to the [facility]. Pt continued to refuse to leave. Pt continuously asked different providers to be admitted and requested to borrow money, and asked the OMAYRA Velásquez to please let her stay with her. Pt had to be constantly reassured and redirected.
--- NOTE | 2020-10-09 19:08 | PC.NURSE ---
Pt called ED demanding that we send a nurse to put catheter in her at a hotel. I told her that was not possible. I told her that she was welcome to return to ED at any point in time to be re-evaluated. Pt states she is going to call the state to report me for malpractice. She requested the ED provider call her, I told her that this was not possible and not protocol. Pt started to yell at me and I told her I was going to hang up unless she was able to stop yelling at me. She declined and hung up on me.
== END 2020-10-09 17:36 | disposition home or self-care (01) ==
PROVIDERS: Emergency Provider Emergency Medicine; Family Provider Family Medicine; PCP Family Medicine
DX: K59.00 Constipation, unspecified (principal); R30.0 Dysuria; R39.15 Urgency of urination
CPT/HCPCS: 36415; 51702; 74176; 80053; 81003; 81015; 83605; 84145; 85025; 87040

== ENCOUNTER 2020-10-09 19:49 | Emergency (ER) | payer MEDICARE, SELFPAY ==
[2020-10-09 19:48] VITALS: BP 166/79; PULSE 105; RESP 24; TEMP 36.6; O2SAT 100
--- NOTE | 2020-10-09 22:09 | ED_ITS ---
HPI - Female Genitourinary General Chief complaint: Urogenital-Female Stated complaint: [place] Time Seen by Provider: 10/09/20 19:54 Source: patient Mode of arrival: EMS Limitations: no limitations History of Present Illness HPI Narrative: 70-year-old female nonsmoker with history of pancreatic tumor, hyperparathyroidism, hyperglycemia and a bleeding disorder presents for the 2nd time today and a chief complaint of inability to urinate. She has not had dizziness, weakness or lightheadedness. She she had an enema earlier which produced a large bowel movement after a CT scan showed very little other than a large stool burden. She also had a urinary catheter which was removed prior to her discharge. She returns because she still is unable to urinate. Onset (ago): minute(s) Location: suprapubic Quality: Aching Duration: constant Relieving factors: urination Exacerbating factors: urination Urinary symptoms: Difficulty Urinating Patient : No Related Data Home Medications Medication Instructions Recorded Confirmed ascorbic acid (vitamin C) [Vitamin 500 mg PO DAILY 01/05/18 10/12/20 C] [id number] 1 tab PO BID 01/05/18 10/12/20 folic acid 1 mg PO DAILY 01/05/18 10/12/20 potassium gluconate 1 tab PO DAILY 01/05/18 10/12/20 Previous Rx's Medication Instructions Recorded cyanocobalamin (vitamin B-12) 1,000 mcg IM QMONTH #1 ml 09/06/20 1,000 mcg/mL injection solution Allergies Allergy/AdvReac Type Severity Reaction Status Date / Time ergocalciferol (vitamin D2) Allergy Mild HEART RACE Verified 10/12/20 10:23 [From Vitamin D2] morphine Allergy Unknown Verified 10/12/20 10:23 codeine AdvReac Severe stomach Verified 10/12/20 10:23 cramps NSAIDS (Non-Steroidal AdvReac Intermediate severe GI Verified 10/12/20 10:23 Anti-Inflamma upset cholecalciferol (vitamin D3) AdvReac Unknown Verified 10/12/20 10:23 [From Vitamin D3] iodine AdvReac Unknown Verified 10/12/20 10:23 Opioids - Morphine Analogues AdvReac Unknown Verified 10/12/20 10:23 fentanyl AdvReac urinary Verified 10/12/20 10:23 retention PAIN MEDICATIONS Allergy Unknown Uncoded 10/12/20 10:23 Review of Systems Constitutional Constitutional: Denies chills, Denies fatigue, Denies fever(s), Denies frequent falls, Denies lethargy and Denies weakness Eyes Eyes: Denies change in vision, Denies eye discharge, Denies irritation and Denies loss of vision ENT Ears, Nose, Mouth, and Throat: Denies change in voice, Denies dizziness, Denies neck pain, Denies sore throat and Denies throat swelling Cardiovascular Cardiovascular: Denies chest pain, Denies irregular heart rhythm, Denies lightheadedness, Denies palpitations, Denies dyspnea, Denies dyspnea on exertion and Denies orthopnea Respiratory Respiratory: Denies cough, Denies dyspnea, Denies dyspnea on exertion and Denies wheezing Gastrointestinal Gastrointestinal: Denies abdominal pain, Denies change in bowel habits, Denies diarrhea, Denies nausea and Denies vomiting Genitourinary Genitourinary: Reports difficulty voiding Musculoskeletal Musculoskeletal: Denies neck pain and Denies numbness Integumentary/Breasts Skin/Breast: Denies pruritus, Denies erythema, Denies rash and Denies wounds Neurologic Neurologic: Denies behavioral changes, Denies confusion, Denies dizziness, Denies frequent falls, Denies loss of vision, Denies numbness and Denies weakness Psychiatric Psychiatric: Denies anxiety, Denies behavioral changes, Denies confusion, Denies depression, Denies homicidal ideation and Denies suicidal ideation Endocrine Endocrine: Denies fatigue, Denies flushing and Denies palpitations Hematologic/Lymphatic Hematologic/Lymphatic: Denies easy bruising Allergic/Immunologic Allergic/Immunologic: Denies urticaria, Denies throat swelling and Denies wheezing Patient History Medical History Acute renal failure Breast cancer, left Diverticulitis History of anemia Hyperparathyroidism Inguinal hernia, incarcerated Renal insufficiency Urinary retention Surgical History History of appendectomy History of left mastoidectomy History of partial colectomy alcohol intake frequency: 0-2 drinks per day Substance Use Type: does not use Exam Narrative Exam Narrative: GENERAL: [70] year old patient appears stated age. Well- developed patient, in mild distress. Requesting catheter HEAD: Atraumatic. Normocephalic. EYES: Pupils equal round and reactive. Extraocular motions intact. No scleral icterus. No injection or drainage. ENT: Nose without bleeding, purulent drainage. Throat without erythema, tonsillar hypertrophy or exudate. Airway patent. NECK: Trachea midline. Non tender CARDIOVASCULAR: Regular rate and rhythm without murmurs, gallops, or rubs. RESPIRATORY: Clear to auscultation. Breath sounds equal bilaterally. No wheezes, rales, or rhonchi. GASTROINTESTINAL: Abdomen soft, non-tender, nondistended. EXTREMITIES: No edema or joint tenderness. BACK: Nontender without deformity or crepitance. No flank tenderness. NEURO: AOx3. SKIN: No rash or erythema of visible areas Initial Vital Signs Initial Vital Signs: Vital Signs Temperature 97.9 F 10/09/20 19:48 Pulse Rate 105 H 10/09/20 19:48 Respiratory Rate 24 10/09/20 19:48 Blood Pressure 166/79 H 10/09/20 19:48 Pulse Oximetry 100 10/09/20 19:48 Course Course Course Narrative: Bladder scan notes 95 cc urine Patient does have a very reassuring exam, labs and imaging are consistent with his exam. Given her difficulty and essential inability to void a catheter is placed and patient is encouraged to follow with urology Orders Ordered: ED Orders 10/09/20 22:17 XR abdomen min 2V Stat 10/09/20 23:00 Basic Metabolic Panel Stat Vital Signs Vital signs: Vital Signs - 8 hr 10/09/20 19:48 Temperature 97.9 F Pulse Rate 105 H Respiratory Rate 24 Blood Pressure 166/79 H Pulse Oximetry 100 MDM - Female Genitourinary Lab Data Result diagrams: 10/09/20 23:00 10/09/20 23:00 Labs: Lab Results 10/09/20 Range/Units 23:00 Sodium 139 (137-145) mmol/L Potassium 3.6 (3.4-5.1) mmol/L Chloride 103 (98-107) mmol/L Carbon Dioxide 26 (22-32) mmol/L BUN 14 (7-17) mg/dL Creatinine 0.80 (0.52-1.04) mg/dL Estimated GFR > 60.0 (>60) mL/min BUN/Creatinine Ratio 17.5 (6-22) Glucose 129 H (80-110) mg/dL Calcium 9.5 (8.4-10.2) mg/dL Discharge Plan Departure Patient Disposition: Home Clinical Impression: Acute urinary retention Instructions: DI for Urinary Retention in Women Activity Restrictions/Additional Instructions: *You have been diagnosed with [acute urinary retention] *What to do: *Please continue to take your regular medications as directed. [ ] New medication prescriptions sent to your pharmacy: [ ] [ ] New medication written as a paper prescription [x ] No new medications given *Please follow up with your primary care provider in 2-3 days, call for an appointment. Let them know you were seen in the Emergency Department and that we ask that you be seen in follow up. We will electronically transmit a record of today's note if your PCP is in our system *If you do not have a primary care provider please contact the [facility] Resource line at [phone]. They will ask some questions about your medical history and help get you set up with a doctor in the community. *Return to Emergency Department if you should have any new, worsening or concerning symptoms, such as [fever greater than 101 F, shaking chills, worsening pain, persistent vomiting or other bothersome symptoms] Prescriptions: No Action [id number] [id number] mg Tablet 1 tab PO BID RF: 0 ascorbic acid (vitamin C) [Vitamin C] 500 mg Tablet 500 mg PO DAILY RF: 0 folic acid 1 mg Tablet 1 mg PO DAILY RF: 0 potassium gluconate 595 mg (99 mg) Tablet Extended Release 1 tab PO DAILY RF: 0 cyanocobalamin (vitamin B-12) 1,000 mcg/mL solution 1,000 mcg IM QMONTH Qty: 1 RF: 0 Referrals: Francois Perez MD [Physician] - Royce Killian MD [Primary Care Provider] -
--- NOTE | 2020-10-09 22:17 | DI.RAD.S_ITS ---
PROCEDURE: XR ABDOMEN MIN 2V INDICATIONS: lower abdomen pain, seen earlier TECHNIQUE: 2 views of the abdomen were acquired. COMPARISON: [facility], CT, CT ABDOMEN PELVIS WO CON, 10/09/2020, 10:00. FINDINGS: Surgical changes and devices: None. Bowel: No pneumoperitoneum. The bowel gas pattern is nonobstructive. No gross peritoneal free air seen. Mild fecal stasis in descending colon and sigmoid colon is seen. Soft tissues: No masses; visualized solid organ contours appear normal in size. No suspicious abdominal calcifications. Bones: No suspicious bony abnormalities. Degenerative disc disease in lower lumbar spine is seen. IMPRESSION: No evidence of bowel obstruction or gross free air. No discrepancies. Dictated by: Rigoberto Gastelum M.D. on 10/10/2020 at 8:18 Approved by: Rigoberto Gastelum M.D. on 10/10/2020 at 8:19
[2020-10-09 23:15] LABS: BUN Creatinine Ratio 17.5 (6-22); Blood Urea Nitrogen 14 mg/dL (7-17); Calcium 9.5 mg/dL (8.4-10.2); Carbon Dioxide 26 mmol/L (22-32); Chloride 103 mmol/L (98-107); Estimated Glomerular Filt Rate > 60.0 mL/min (>60); Glucose 129 mg/dL (80-110); HEMOLYSIS 24 (0-50); Potassium 3.6 mmol/L (3.4-5.1); Sodium 139 mmol/L (137-145)
[2020-10-10 06:28] VITALS: BP 132/79; PULSE 81; RESP 20; O2SAT 99
== END 2020-10-10 06:22 | disposition home or self-care (01) ==
PROVIDERS: Emergency Provider Emergency Medicine; Family Provider Family Medicine; PCP Family Medicine
DX: R33.9 Retention of urine, unspecified (principal); R30.0 Dysuria; R39.15 Urgency of urination; K59.00 Constipation, unspecified
CPT/HCPCS: 36415; 51702; 51798; 74019; 74176; 80048; 80053; 81003; 81015; 83605; 84145; 85025; 87040; 99283; 99284

== ENCOUNTER → 2020-10-16 11:01 | Outpatient (CLI) | payer MEDICARE, SELFPAY | PROVIDERS: Family Provider Family Medicine; PCP Family Medicine; Visit Provider Physician Assistant | DX: R31.9 Hematuria, unspecified (principal) | CPT/HCPCS: 87077; 87086; 87186 ==

== ENCOUNTER → 2020-10-25 14:12 | Outpatient (CLI) | payer MEDICARE, SELFPAY | PROVIDERS: Family Provider Family Medicine; PCP Family Medicine; Visit Provider Physician Assistant Medical | DX: R39.9 Unspecified symptoms and signs involving the genitourinary system (principal) | CPT/HCPCS: 87086 ==

== ENCOUNTER → 2020-11-30 10:58 | Outpatient (CLI) | payer MEDICARE, SELFPAY | PROVIDERS: Family Provider Family Medicine; PCP Family Medicine; Visit Provider Physician Assistant Medical | DX: R10.32 Left lower quadrant pain (principal); R31.9 Hematuria, unspecified | CPT/HCPCS: 87086 ==

== ENCOUNTER → 2021-12-05 10:00 | Outpatient (CLI) | payer MEDICARE, SELFPAY ==
[2021-12-06 18:28] LABS: Add Manual Diff / Slide Review NO; Basophils Absolute Auto 0 /uL (0-100); Basophils Percent Auto 0.7 % (0-2); Eosinophils Absolute Auto 0 /uL (0-450); Eosinophils Percent Auto 1.1 % (2-4); Hematocrit 38.7 % (36-46); Hemoglobin 13.4 g/dL (12.0-16.0); Lymphocytes Absolute Auto 1200 /uL (1100-4500); Lymphocytes Percent Auto 28.5 % (25-40); Mean Corpuscular HGB Conc 34.6 % (30-36); Mean Corpuscular Volume 89.8 fL (80-100); Monocytes Absolute Auto 300 /uL (0-900); Monocytes Percent Auto 6.4 % (3-14); Neutrophils Absolute Auto 2700 /uL (1500-7000); Neutrophils Percent Auto 63.3 % (50-75); Platelet Count 222 X10^3/uL (150-400); Red Blood Cell Count 4.31 X10^6/uL (4.0-5.2); White Blood Cell Count 4.3 X10^3/uL (4.5-11.0)
[2021-12-06 18:44] LABS: Alanine Aminotransferase 23 IU/L (<35); Albumin 4.1 g/dL (3.5-5.0); Albumin Globulin Ratio 1.2 (1.0-2.8); Alkaline Phosphatase 137 U/L (38-126); Aspartate Aminotransferase 34 IU/L (14-36); BUN Creatinine Ratio 13.2 (6-22); Bilirubin Total 0.7 mg/dL (0.2-1.3); Blood Urea Nitrogen 10 mg/dL (7-17); C-Reactive Protein Quant < 0.5 mg/dL (<1.0); Calcium 9.1 mg/dL (8.4-10.2); Carbon Dioxide 28 mmol/L (22-32); Chloride 103 mmol/L (98-107); Cholesterol 223 mg/dL (140-199); Estimated Glomerular Filt Rate > 60 mL/min (>60); Globulin 3.5 g/dL (1.7-4.1); Glucose 98 mg/dL (80-110); HDL Cholesterol 43 mg/dL (40-60); HEMOLYSIS < 15 (0-50); LDL Cholesterol Calculated 149 mg/dL (<100); Potassium 4.3 mmol/L (3.4-5.1); Sodium 138 mmol/L (137-145); Total Protein 7.6 g/dL (6.3-8.2); Triglycerides 157 mg/dL (35-150)
[2021-12-06 19:09] LABS: TSH w/ Reflex to FT4 1.12 uIU/mL (0.47-4.68)
[2021-12-06 19:32] LABS: Vitamin B12 > 1000 pg/mL (239-931)
[2021-12-08 10:46] LABS: Calcium 9.2 mg/dL (8.7-10.3); Parathyroid Hormone, Intact 57 pg/mL (15-65)
== END ==
PROVIDERS: Family Provider Family Medicine; PCP Family Medicine; Visit Provider Family Medicine
DX: E21.3 Hyperparathyroidism, unspecified (principal); E53.8 Deficiency of other specified B group vitamins; I49.9 Cardiac arrhythmia, unspecified; R74.8 Abnormal levels of other serum enzymes
CPT/HCPCS: 80053; 80061; 82310; 82607; 83970; 84443; 85025; 85651; 86140

== ENCOUNTER → 2022-03-31 10:06 | Outpatient (CLI) | payer MEDICARE, SELFPAY | PROVIDERS: Family Provider Family Medicine; PCP Physician Assistant; Visit Provider Physician Assistant | DX: N39.0 Urinary tract infection, site not specified (principal) | CPT/HCPCS: 87086 ==

== ENCOUNTER → 2022-06-19 09:49 | Outpatient (CLI) | payer MEDICARE, SELFPAY ==
[2022-06-19 20:28] LABS: Cholesterol 232 mg/dL (140-199); HDL Cholesterol 46 mg/dL (40-60); LDL Cholesterol Calculated 159 mg/dL (<100); Triglycerides 133 mg/dL (35-150)
[2022-06-19 20:59] LABS: TSH w/ Reflex to FT4 1.11 uIU/mL (0.47-4.68)
[2022-06-19 21:06] LABS: Hepatitis B Surface Antigen NEGATIVE s/c (NEGATIVE)
[2022-06-19 21:16] LABS: Vitamin B12 > 1000 pg/mL (239-931)
[2022-06-19 21:24] LABS: HIV 1 & 2 Ab/Ag 4th Gen Combo NEGATIVE (NEGATIVE); Hep C Virus Ab w/Reflex Quant NEGATIVE s/c (NEGATIVE)
[2022-06-23 15:17] LABS: ANA Screen, IFA Negative (.)
[2022-06-24 13:37] LABS: Albumin 3.5 g/dL (2.9-4.4); Alpha-1-Globulin 0.2 g/dL (0.0-0.4); Alpha-2-Globulin 0.7 g/dL (0.4-1.0); Gamma Globulin 1.7 g/dL (0.4-1.8); Globulin Total 3.6 g/dL (2.2-3.9); Protein, Total 7.1 g/dL (6.0-8.5)
== END ==
PROVIDERS: Family Provider Family Medicine; PCP Family Medicine; Visit Provider Family Medicine
DX: Z00.00 Encounter for general adult medical examination without abnormal findings (principal); R74.8 Abnormal levels of other serum enzymes; D64.9 Anemia, unspecified; E03.9 Hypothyroidism, unspecified; D47.2 Monoclonal gammopathy
CPT/HCPCS: 80061; 82525; 82607; 84155; 84165; 84443; 86038; 86803; 87340; 87389

== ENCOUNTER → 2022-08-28 10:19 | Outpatient (CLI) | payer MEDICARE, SELFPAY ==
[2022-08-28 20:13] LABS: Alanine Aminotransferase 17 IU/L (<35); Albumin 4.1 g/dL (3.5-5.0); Albumin Globulin Ratio 1.2 (1.0-2.8); Alkaline Phosphatase 122 U/L (38-126); Aspartate Aminotransferase 34 IU/L (14-36); BUN Creatinine Ratio 12.9 (6-22); Bilirubin Total 0.7 mg/dL (0.2-1.3); Blood Urea Nitrogen 9 mg/dL (7-17); Calcium 8.9 mg/dL (8.4-10.2); Carbon Dioxide 26 mmol/L (22-32); Chloride 102 mmol/L (98-107); Cholesterol 229 mg/dL (140-199); Estimated Glomerular Filt Rate > 60 mL/min (>60); Globulin 3.5 g/dL (1.7-4.1); Glucose 94 mg/dL (80-110); HDL Cholesterol 43 mg/dL (40-60); HEMOLYSIS < 15 (0-50); LDL Cholesterol Calculated 146 mg/dL (<100); Potassium 4.1 mmol/L (3.4-5.1); Sodium 137 mmol/L (137-145); Total Protein 7.6 g/dL (6.3-8.2); Triglycerides 202 mg/dL (35-150)
[2022-08-28 20:18] LABS: Add Manual Diff / Slide Review NO; Basophils Absolute Auto 100 /uL (0-100); Basophils Percent Auto 1.2 % (0-2); Eosinophils Absolute Auto 100 /uL (0-450); Eosinophils Percent Auto 1.7 % (2-4); Hematocrit 36.9 % (36-46); Hemoglobin 12.4 g/dL (12.0-16.0); Lymphocytes Absolute Auto 1500 /uL (1100-4500); Lymphocytes Percent Auto 31.8 % (25-40); Mean Corpuscular HGB Conc 33.8 % (30-36); Mean Corpuscular Hemoglobin 29.6 PG (26-34); Mean Corpuscular Volume 87.7 fL (80-100); Monocytes Absolute Auto 300 /uL (0-900); Monocytes Percent Auto 7.2 % (3-14); Neutrophils Absolute Auto 2700 /uL (1500-7000); Neutrophils Percent Auto 58.1 % (50-75); Platelet Count 247 X10^3/uL (150-400); Red Cell Distribution Width 13.3 % (11.6-14.8); White Blood Cell Count 4.7 X10^3/uL (4.5-11.0)
[2022-08-28 20:52] LABS: TSH w/ Reflex to FT4 0.41 uIU/mL (0.47-4.68)
[2022-08-28 21:02] LABS: Vitamin B12 > 1000 pg/mL (239-931)
[2022-08-28 21:20] LABS: Free T4, Direct Thyroxine 1.07 ng/dL (0.78-2.19)
[2022-08-31 09:36] LABS: Parathyroid Hormone, Intact 49 pg/mL (15-65)
== END ==
PROVIDERS: Family Provider Family Medicine; PCP Family Medicine; Visit Provider Family Medicine
DX: D64.9 Anemia, unspecified (principal); E03.9 Hypothyroidism, unspecified; E21.3 Hyperparathyroidism, unspecified; E67.8 Other specified hyperalimentation; R74.8 Abnormal levels of other serum enzymes
CPT/HCPCS: 80053; 80061; 82310; 82607; 83970; 84439; 84443; 85025

== ENCOUNTER → 2022-12-17 11:12 | Outpatient (CLI) | payer MEDICARE, SELFPAY ==
[2022-12-17 19:51] LABS: C-Reactive Protein Quant < 0.5 mg/dL (<1.0); Cholesterol 224 mg/dL (140-199); HDL Cholesterol 42 mg/dL (40-60); LDL Cholesterol Calculated 148 mg/dL (<100); Triglycerides 168 mg/dL (35-150)
[2022-12-17 20:04] LABS: Add Manual Diff / Slide Review NO; Basophils Absolute Auto 100 /uL (0-100); Basophils Percent Auto 1.3 % (0-2); Eosinophils Absolute Auto 100 /uL (0-450); Eosinophils Percent Auto 1.3 % (2-4); Hematocrit 36.6 % (36-46); Hemoglobin 12.3 g/dL (12.0-16.0); Lymphocytes Absolute Auto 1600 /uL (1100-4500); Lymphocytes Percent Auto 33.7 % (25-40); Mean Corpuscular HGB Conc 33.7 % (30-36); Mean Corpuscular Volume 89.3 fL (80-100); Monocytes Absolute Auto 300 /uL (0-900); Monocytes Percent Auto 6.2 % (3-14); Neutrophils Absolute Auto 2700 /uL (1500-7000); Neutrophils Percent Auto 57.5 % (50-75); Platelet Count 245 X10^3/uL (150-400); Red Cell Distribution Width 13.2 % (11.6-14.8); White Blood Cell Count 4.6 X10^3/uL (4.5-11.0)
[2022-12-17 20:18] LABS: TSH w/ Reflex to FT4 1.22 uIU/mL (0.47-4.68)
[2022-12-17 21:38] LABS: Erythrocyte Sedimentation Rate 23 MM/HR (0-20)
[2022-12-18 02:57] LABS: Vitamin B12 > 1000 pg/mL (239-931)
[2022-12-22 19:39] LABS: Albumin 3.4 g/dL (2.9-4.4); Alpha-1-Globulin 0.2 g/dL (0.0-0.4); Alpha-2-Globulin 0.7 g/dL (0.4-1.0); Gamma Globulin 1.8 g/dL (0.4-1.8); Globulin Total 3.7 g/dL (2.2-3.9); Protein, Total 7.1 g/dL (6.0-8.5)
== END ==
PROVIDERS: Family Provider Family Medicine; PCP Family Medicine; Visit Provider Family Medicine
DX: C88.0 Waldenstrom macroglobulinemia (principal); D64.9 Anemia, unspecified; E67.8 Other specified hyperalimentation; E78.2 Mixed hyperlipidemia; R74.8 Abnormal levels of other serum enzymes; K08.89 Other specified disorders of teeth and supporting structures
CPT/HCPCS: 80061; 82607; 84155; 84165; 84443; 85025; 85651; 86140

== ENCOUNTER → 2023-01-07 13:04 | Outpatient (CLI) | payer MEDICARE, SELFPAY ==
[2023-01-07 20:13] LABS: Alanine Aminotransferase 19 IU/L (<35); Albumin 3.9 g/dL (3.5-5.0); Albumin Globulin Ratio 1.1 (1.0-2.8); Alkaline Phosphatase 123 U/L (38-126); Aspartate Aminotransferase 33 IU/L (14-36); Bilirubin Total 0.6 mg/dL (0.2-1.3); Bilirubin Unconjugated 0.4 mg/dL (0.0-1.1); Globulin 3.4 g/dL (1.7-4.1); HEMOLYSIS < 15 (0-50); Total Protein 7.3 g/dL (6.3-8.2)
[2023-01-07 20:57] LABS: Vitamin B12 947 pg/mL (239-931)
== END ==
PROVIDERS: Family Provider Family Medicine; PCP Family Medicine; Visit Provider Family Medicine
DX: C88.0 Waldenstrom macroglobulinemia (principal); E67.8 Other specified hyperalimentation; R74.8 Abnormal levels of other serum enzymes
CPT/HCPCS: 80076; 82607

== ENCOUNTER → 2023-03-26 10:15 | Outpatient (CLI) | payer MEDICARE, SELFPAY ==
[2023-03-26 19:06] LABS: Alanine Aminotransferase 16 IU/L (<35); Alkaline Phosphatase 135 U/L (38-126); Aspartate Aminotransferase 33 IU/L (14-36); BUN Creatinine Ratio 18.6 (6-22); Blood Urea Nitrogen 13 mg/dL (7-17); Calcium 9.6 mg/dL (8.4-10.2); Carbon Dioxide 26 mmol/L (22-32); Chloride 103 mmol/L (98-107); Cholesterol 233 mg/dL (140-199); Estimated Glomerular Filt Rate > 60 mL/min (>60); Globulin 3.9 g/dL (1.7-4.1); Glucose 100 mg/dL (80-110); HDL Cholesterol 48 mg/dL (40-60); HEMOLYSIS < 15 (0-50); LDL Cholesterol Calculated 157 mg/dL (<100); Potassium 4.1 mmol/L (3.4-5.1); Sodium 136 mmol/L (137-145); Total Protein 7.9 g/dL (6.3-8.2); Triglycerides 138 mg/dL (35-150)
[2023-03-26 19:57] LABS: Vitamin B12 849 pg/mL (239-931)
== END ==
PROVIDERS: Family Provider Family Medicine; PCP Family Medicine; Visit Provider Family Medicine
DX: D64.9 Anemia, unspecified (principal); R74.8 Abnormal levels of other serum enzymes; E67.8 Other specified hyperalimentation; E78.2 Mixed hyperlipidemia
CPT/HCPCS: 80053; 80061; 82607

== ENCOUNTER → 2023-07-21 12:56 | Outpatient (CLI) | payer MEDICARE, SELFPAY ==
[2023-07-21 19:28] LABS: Add Manual Diff / Slide Review NO; Alanine Aminotransferase 13 IU/L (<35); Albumin Globulin Ratio 1.1 (1.0-2.8); Alkaline Phosphatase 125 U/L (38-126); Aspartate Aminotransferase 32 IU/L (14-36); BUN Creatinine Ratio 12.8 (6-22); Basophils Absolute Auto 0 /uL (0-100); Basophils Percent Auto 0.7 % (0-2); Bilirubin Total 1.1 mg/dL (0.2-1.3); Blood Urea Nitrogen 10 mg/dL (7-17); Calcium 9.1 mg/dL (8.4-10.2); Carbon Dioxide 25 mmol/L (22-32); Chloride 107 mmol/L (98-107); Cholesterol 224 mg/dL (140-199); Eosinophils Absolute Auto 0 /uL (0-450); Eosinophils Percent Auto 0.8 % (2-4); Estimated Glomerular Filt Rate > 60 mL/min (>60); Globulin 3.5 g/dL (1.7-4.1); Glucose 118 mg/dL (80-110); HDL Cholesterol 55 mg/dL (40-60); HEMOLYSIS < 15 (0-50); Hematocrit 37.7 % (36-46); Hemoglobin 12.7 g/dL (12.0-16.0); LDL Cholesterol Calculated 156 mg/dL (<100); Lymphocytes Absolute Auto 1600 /uL (1100-4500); Lymphocytes Percent Auto 25.9 % (25-40); Mean Corpuscular HGB Conc 33.7 % (30-36); Mean Corpuscular Hemoglobin 30.4 PG (26-34); Mean Corpuscular Volume 90.1 fL (80-100); Monocytes Absolute Auto 400 /uL (0-900); Monocytes Percent Auto 6.5 % (3-14); Neutrophils Absolute Auto 4100 /uL (1500-7000); Neutrophils Percent Auto 66.1 % (50-75); Platelet Count 257 X10^3/uL (150-400); Potassium 4.1 mmol/L (3.4-5.1); Red Blood Cell Count 4.18 X10^6/uL (4.0-5.2); Red Cell Distribution Width 13.1 % (11.6-14.8); Sodium 138 mmol/L (137-145); Total Protein 7.5 g/dL (6.3-8.2); Triglycerides 63 mg/dL (35-150); White Blood Cell Count 6.1 X10^3/uL (4.5-11.0)
[2023-07-21 19:55] LABS: TSH w/ Reflex to FT4 0.91 uIU/mL (0.47-4.68)
[2023-07-21 20:12] LABS: Vitamin B12 777 pg/mL (239-931)
== END ==
PROVIDERS: Family Provider Family Medicine; PCP Family Medicine; Visit Provider Family Medicine
DX: E67.8 Other specified hyperalimentation (principal); E78.2 Mixed hyperlipidemia; C88.0 Waldenstrom macroglobulinemia; E03.9 Hypothyroidism, unspecified; R74.8 Abnormal levels of other serum enzymes; D64.9 Anemia, unspecified; D49.0 Neoplasm of unspecified behavior of digestive system
CPT/HCPCS: 80053; 80061; 82607; 84443; 85025

== ENCOUNTER → 2023-10-29 11:43 | Outpatient (CLI) | payer MEDICARE, SELFPAY ==
[2023-10-29 21:48] LABS: Hemoglobin 12.5 g/dL (12.0-16.0); Mean Corpuscular HGB Conc 33.7 % (30-36); Mean Corpuscular Hemoglobin 29.6 PG (26-34); Mean Corpuscular Volume 87.9 fL (80-100); Platelet Count 258 X10^3/uL (150-400); Red Cell Distribution Width 13.8 % (11.6-14.8); White Blood Cell Count 5.5 X10^3/uL (4.5-11.0)
[2023-10-30 03:53] LABS: Neutrophils Absolute Manual 2695 /uL (3000-5900); Total Cells Counted 100
[2023-10-30 03:54] LABS: Anisocytosis 1+; Macrocytosis 1+; Platelet Estimate Adequate on smear
== END ==
PROVIDERS: Family Provider Family Medicine; PCP Family Medicine; Visit Provider Family Medicine
DX: Z01.89 Encounter for other specified special examinations (principal)
CPT/HCPCS: 85025

== ENCOUNTER → 2023-12-16 09:35 | Outpatient (CLI) | payer MEDICARE, SELFPAY ==
[2023-12-16 20:48] LABS: Alanine Aminotransferase 13 IU/L (<35); Albumin 3.9 g/dL (3.5-5.0); Alkaline Phosphatase 114 U/L (38-126); Aspartate Aminotransferase 69 IU/L (14-36); Bilirubin Total 0.8 mg/dL (0.2-1.3); Bilirubin Unconjugated 0.2 mg/dL (0.0-1.1); Cholesterol 235 mg/dL (140-199); HDL Cholesterol 46 mg/dL (40-60); HEMOLYSIS 36 (0-50); LDL Cholesterol Calculated 165 mg/dL (<100); Total Protein 7.9 g/dL (6.3-8.2); Triglycerides 119 mg/dL (35-150)
== END ==
PROVIDERS: Family Provider Family Medicine; PCP Family Medicine; Visit Provider Family Medicine
DX: D75.89 Other specified diseases of blood and blood-forming organs (principal); E78.2 Mixed hyperlipidemia; R74.8 Abnormal levels of other serum enzymes
CPT/HCPCS: 80061; 80076

== ENCOUNTER → 2024-01-26 13:05 | Outpatient (CLI) | payer MEDICARE, SELFPAY ==
[2024-01-26 19:03] LABS: Hematocrit 37.4 % (36-46); Hemoglobin 12.5 g/dL (12.0-16.0); Mean Corpuscular HGB Conc 33.5 % (30-36); Mean Corpuscular Hemoglobin 29.6 PG (26-34); Mean Corpuscular Volume 88.1 fL (80-100); Platelet Count 255 X10^3/uL (150-400); Red Blood Cell Count 4.24 X10^6/uL (4.0-5.2); White Blood Cell Count 5.9 X10^3/uL (4.5-11.0)
[2024-01-26 20:26] LABS: Neutrophils Absolute Manual 3422 /uL (3000-5900); RBC Morphology Normal Morphology; Total Cells Counted 100
[2024-01-26 20:27] LABS: Alanine Aminotransferase 15 IU/L (<35); Albumin 3.8 g/dL (3.5-5.0); Alkaline Phosphatase 131 U/L (38-126); Aspartate Aminotransferase 33 IU/L (14-36); BUN Creatinine Ratio 12.2 (6-22); Bilirubin Total 0.7 mg/dL (0.2-1.3); Blood Urea Nitrogen 11 mg/dL (7-17); Calcium 9.3 mg/dL (8.4-10.2); Carbon Dioxide 25 mmol/L (22-32); Chloride 105 mmol/L (98-107); Estimated Glomerular Filt Rate > 60 mL/min (>60); Globulin 3.7 g/dL (1.7-4.1); Glucose 117 mg/dL (80-110); HEMOLYSIS < 15 (0-50); Potassium 3.9 mmol/L (3.4-5.1); Sodium 137 mmol/L (137-145); Total Protein 7.5 g/dL (6.3-8.2)
== END ==
PROVIDERS: Family Provider Family Medicine; PCP Family Medicine; Visit Provider Family Medicine
DX: D75.89 Other specified diseases of blood and blood-forming organs (principal); D70.9 Neutropenia, unspecified; R71.8 Other abnormality of red blood cells; D72.10 Eosinophilia, unspecified; C50.919 Malignant neoplasm of unspecified site of unspecified female breast; R22.2 Localized swelling, mass and lump, trunk; R25.2 Cramp and spasm
CPT/HCPCS: 80053; 85025

== ENCOUNTER → 2024-02-23 08:28 | Outpatient (CLI) | payer MEDICARE, SELFPAY | PROVIDERS: Family Provider Family Medicine; PCP Family Medicine; Referring Provider Physician Assistant Medical; Visit Provider Physician Assistant Medical | DX: R33.9 Retention of urine, unspecified (principal) | CPT/HCPCS: 87077; 87086; 87186 ==

== ENCOUNTER → 2024-03-01 09:48 | Outpatient (CLI) | payer MEDICARE, SELFPAY ==
[2024-03-01 19:18] LABS: Alanine Aminotransferase 12 IU/L (<35); HEMOLYSIS < 15 (0-50)
[2024-03-01 19:24] LABS: Albumin 3.4 g/dL (3.5-5.0); Albumin Globulin Ratio 0.9 (1.0-2.8); Alkaline Phosphatase 95 U/L (38-126); Aspartate Aminotransferase 27 IU/L (14-36); Bilirubin Total 0.5 mg/dL (0.2-1.3); Bilirubin Unconjugated 0.3 mg/dL (0.0-1.1); Cholesterol 196 mg/dL (140-199); Globulin 3.6 g/dL (1.7-4.1); HDL Cholesterol 36 mg/dL (40-60); LDL Cholesterol Calculated 138 mg/dL (<100); Triglycerides 109 mg/dL (35-150)
== END ==
PROVIDERS: Family Provider Family Medicine; PCP Family Medicine; Visit Provider Family Medicine
DX: R74.8 Abnormal levels of other serum enzymes (principal); M25.519 Pain in unspecified shoulder; M75.40 Impingement syndrome of unspecified shoulder; Z85.3 Personal history of malignant neoplasm of breast; E78.2 Mixed hyperlipidemia
CPT/HCPCS: 80061; 80076

== ENCOUNTER → 2024-04-28 10:01 | Outpatient (CLI) | payer MEDICARE, SELFPAY ==
[2024-04-28 20:38] LABS: Alanine Aminotransferase 15 IU/L (<35); Albumin 4.1 g/dL (3.5-5.0); Albumin Globulin Ratio 1.2 (1.0-2.8); Alkaline Phosphatase 128 U/L (38-126); Aspartate Aminotransferase 34 IU/L (14-36); Bilirubin Total 0.9 mg/dL (0.2-1.3); Bilirubin Unconjugated 0.6 mg/dL (0.0-1.1); Cholesterol 243 mg/dL (140-199); Globulin 3.4 g/dL (1.7-4.1); HDL Cholesterol 50 mg/dL (40-60); HEMOLYSIS < 15 (0-50); LDL Cholesterol Calculated 165 mg/dL (<100); Total Protein 7.5 g/dL (6.3-8.2); Triglycerides 139 mg/dL (35-150)
[2024-04-28 21:27] LABS: Vitamin B12 412 pg/mL (239-931)
== END ==
PROVIDERS: Family Provider Family Medicine; PCP Family Medicine; Visit Provider Family Medicine
DX: R74.8 Abnormal levels of other serum enzymes (principal); E78.2 Mixed hyperlipidemia; E53.8 Deficiency of other specified B group vitamins
CPT/HCPCS: 80061; 80076; 82607

== ENCOUNTER → 2024-10-04 09:25 | Outpatient (CLI) | payer MEDICARE, SELFPAY ==
[2024-10-04 19:57] LABS: Alanine Aminotransferase 14 IU/L (<35); Albumin Globulin Ratio 1.2 (1.0-2.8); Alkaline Phosphatase 116 U/L (38-126); Aspartate Aminotransferase 34 IU/L (14-36); Bilirubin Total 0.8 mg/dL (0.2-1.3); Bilirubin Unconjugated 0.4 mg/dL (0.0-1.1); Cholesterol 222 mg/dL (140-199); Globulin 3.3 g/dL (1.7-4.1); HDL Cholesterol 50 mg/dL (40-60); HEMOLYSIS < 15 (0-50); LDL Cholesterol Calculated 144 mg/dL (<100); Total Protein 7.3 g/dL (6.3-8.2); Triglycerides 138 mg/dL (35-150)
[2024-10-04 22:33] LABS: Vitamin B12 267 pg/mL (239-931)
== END ==
PROVIDERS: Family Provider Family Medicine; PCP Family Medicine; Visit Provider Family Medicine
DX: E53.8 Deficiency of other specified B group vitamins (principal); E78.2 Mixed hyperlipidemia; R74.8 Abnormal levels of other serum enzymes; Z90.13 Acquired absence of bilateral breasts and nipples
CPT/HCPCS: 80061; 80076; 82607

== ENCOUNTER → 2024-10-27 11:33 | Outpatient (CLI) | payer MEDICARE, SELFPAY ==
[2024-10-27 19:39] LABS: Add Manual Diff / Slide Review NO; Hematocrit 36.8 % (36-46); Hemoglobin 12.5 g/dL (12.0-16.0); Lymphocytes Absolute Auto 1300 /uL (1100-4500); Mean Corpuscular HGB Conc 34.0 % (30-36); Mean Corpuscular Hemoglobin 30.4 PG (26-34); Mean Corpuscular Volume 89.2 fL (80-100); Platelet Count 262 X10^3/uL (150-400)
== END ==
PROVIDERS: Family Provider Family Medicine; PCP Family Medicine; Visit Provider Family Medicine
DX: D75.89 Other specified diseases of blood and blood-forming organs (principal)
CPT/HCPCS: 85025

== ENCOUNTER → 2025-02-20 13:07 | Outpatient (CLI) | payer MEDICARE, SELFPAY ==
[2025-02-20 18:54] LABS: Add Manual Diff / Slide Review NO; Hematocrit 39.6 % (36-46); Hemoglobin 13.2 g/dL (12.0-16.0); Lymphocytes Absolute Auto 1700 /uL (1100-4500); Mean Corpuscular HGB Conc 33.4 % (30-36); Mean Corpuscular Hemoglobin 29.5 PG (26-34); Mean Corpuscular Volume 88.3 fL (80-100); Platelet Count 265 X10^3/uL (150-400)
[2025-02-24 15:36] LABS: ANA Screen, IFA Negative (.)
== END ==
PROVIDERS: Family Provider Family Medicine; PCP Family Medicine; Visit Provider Family Medicine
DX: E53.8 Deficiency of other specified B group vitamins (principal); M79.621 Pain in right upper arm
CPT/HCPCS: 85025; 86038